=== PATIENT | male | born 1945 | race Caucasian/White ===

== ENCOUNTER → 2018-02-24 06:14 | Outpatient (CLI) | payer OTHER, SELFPAY ==
--- NOTE | 2018-02-24 09:08 | STRESSREP ---
Stress Test Report Exercise myocardial perfusion stress test. 72-year-old man with a history of chest pain. Stress protocol: Resting EKG demonstrates sinus bradycardia cardia with a rate of 58 bpm resting blood pressure 734/80 mmHg no acute changes noted. Occasional premature ventricular complexes are present. The patient exercised according to the regular Dinesh protocol for a total duration of 3 minutes and 10 seconds the maximum heart rate attained was 141 bpm which was 96% of maximum predicted heart rate the maximum workload was 4.8 metabolic equivalents. Patient maintained sinus rhythm throughout the recording there was one episode of ventricular triplet noted. The resting blood pressure was 134/80 final blood pressure was 136/78 mmHg. There were no ST or T-wave changes noted suggest ischemia. Myocardial perfusion protocol. 11.3 mCi of technetium 99m sestamibi was injected at rest. The patient exercised according to regular Dinesh protocol for 3 minutes and 10 seconds attaining 4.8 metabolic equivalents at peak exercise 33.1 mCi of technetium 99m sestamibi was injected stress images were obtained stress and rest images were reconstructed and compared in the short axis vertical long and horizontal long axis. Perfusion SPECT analysis: Review of the stress images demonstrate an small cardiac silhouette size. There appears to be normal perfusion in all areas of the myocardium with mildly reduced perfusion noted only in the inferior wall. This is likely secondary to GI or diaphragmatic attenuation. This is present on the stress and rest images to a similar extent and is not suggestive of ischemia. Gated SPECT analysis: The gated ejection fraction is estimated at 43% with global hypokinesis. Conclusion: Exercise stress test with no obvious ischemia noted at a low workload. Low metabolic workload may affect the sensitivity for detection of ischemia. Mild cardiomyopathy present.
== END ==
PROVIDERS: Family Provider Family Medicine; PCP Family Medicine; Visit Provider Family Medicine
DX: R07.9 Chest pain, unspecified (principal)
CPT/HCPCS: 78452; 93017; A9500; A4216

== ENCOUNTER 2020-03-04 20:00 | Emergency (ER) | payer OTHER, SELFPAY ==
[2020-02-28 09:38] VITALS: BMI 26.7
[2020-03-04 20:02] VITALS: BP 145/111; PULSE 46; RESP 16; TEMP 36.6; O2SAT 97; BMI 26.7
[2020-03-04] MEDS: Diphth,Pertuss(Acell),Tet Vac 0.5 ML Vial IM (21:06)
[2020-03-04] MEDS: BACITRACIN 15 GM Tube 1 APPLIC TOPICAL (21:06)
--- NOTE | 2020-03-04 21:47 | ED.VISSUMM ---
- ER Visit Summary Date of Service: 03/04/20 Chief Complaint: Fall History of Present Illness: The patient is a 74 M who presents after a fall that occurred today. Patient states he slipped on a railroad tie that rolled out from underneath him. Patient fell forward and hit his head. Patient denies any loss of consciousness. Patient is unsure of his last tetanus. Patient denies any paresthesias or weakness. Patient denies any visual changes. Patient does admit to some mild aching on the left side of his head. Patient also admits to some mild pain over his upper thoracic paraspinal area. Patient denies any nausea or vomiting. Patient denies any chest pain or shortness of breath. Physical Examination: Vital signs are stable. Patient is afebrile. Patient is in no acute distress. Skin is warm and dry. There is a 3 cm V-shaped laceration over the left periorbital area. There is moderate gapping of the wound margins. There is no active bleeding noted. There is no bony crepitance or step-off. There are no foreign bodies noted. Pupils are equal, round, and reactive to light bilaterally. Extraocular muscles are intact. Cranial nerves II through XII are intact. There are no focal motor or sensory deficits noted. Musculoskeletal exam reveals tenderness over the upper thoracic paraspinal muscles. There is no bony crepitance or step-off. There is no edema or ecchymosis. Heart was regular rate and rhythm. Lungs are clear and equal bilaterally. Abdomen is soft and nontender. Emergency Department Course and Treatment: The wound was cleaned and irrigated with copious amounts of normal saline. The wound was anesthetized with 1% lidocaine with epinephrine locally. The wound was closed with 5 simple interrupted #5-0 nylon sutures under sterile technique. Patient tolerated the procedure well. Bacitracin dressing was applied. Patient was instructed to keep the wound clean and dry. Patient was instructed to follow-up with his primary care physician in 5 to 7 days. Patient understood and was agreeable with the plan. All questions were answered. Disposition: Discharge home Impression: Facial laceration This note was generated with [employer] dictation software. It may contain incorrect words, spelling, and punctuation that were not noted in review of the chart prior to signing ED Disposition - Plan for ED Patient: Disposition: Home or Assisted Living Diagnosis: Facial laceration Instructions: ED Laceration Facial Sutr Tape Referrals: Beni Joseph III, MD [Primary Care Provider] - 5 Days for suture removal
[2020-03-04 22:47] VITALS: BP 147/87; PULSE 76; RESP 16; O2SAT 99
== END 2020-03-04 22:49 | disposition home or self-care (01) ==
PROVIDERS: Emergency Provider Emergency Medicine; PCP Family Medicine
DX: S01.81XA Laceration without foreign body of other part of head, initial encounter (principal); W01.0XXA Fall on same level from slipping, tripping and stumbling without subsequent striking against object, initial encounter; Y93.9 Activity, unspecified; Y92.9 Unspecified place or not applicable; I10 Essential (primary) hypertension; Z79.899 Other long term (current) drug therapy
CPT/HCPCS: 12013; 90715; 99283

== ENCOUNTER → 2020-03-12 14:56 | Outpatient (CLI) | payer OTHER, SELFPAY ==
--- NOTE | 2020-03-12 | LES_PTH ---
PATIENT: BJORN ARTEAGA LOC: [facility] U#:[id number] AGE/SX: 79/M ROOM: RE03/12/[address]: Dr. Facundo Joseph MD : 1945 BED: DIS: SPEC #: [id number] RECD: 03/12/20 14:52 STATUS: TARUN JENA #: [id number] MOLLY: 03/12/20 00:[address]: Facundo Joseph DEPT: SURGICAL PATHOLOGY RECD BY: Errol Groves ENTERED: 03/13/20 10:32 SP TYPE: Lesion OTHR DR: Dr. Beni Joseph III, MD Tissues: Skin of scalp, NOS Procedures: Surgery Specimen Level IV HEADER OPERATION: Punch biopsy right parietal scalp PRE-OP DIAGNOSIS: Neoplasm scalp TISSUE SUBMITTED: Right parietal scalp tissue MICROSCOPIC DIAGNOSIS Right parietal scalp lesion, punch biopsy: Consistent with seborrheic keratosis. Negative for malignancy. See comment. SJ:maykel 03/14/20 COMMENT Clinical correlation and appropriate follow up are necessary. MICROSCOPIC DESCRIPTION Slides are reviewed. GROSS DESCRIPTION Received in fixative is one container labeled with the patient's name and designated right parietal tissue. The specimen consists of a punch biopsy of dubose-white skin measuring 0.5 cm in length and 0.2 cm in diameter. The specimen is submitted in its entirety in one cassette. / AM:maykel 03/13/20 TC:1 CPT: 81082
[2020-03-12 13:00] VITALS: BMI 26.7
== END ==
PROVIDERS: PCP Family Medicine; Referring Provider Surgery; Visit Provider Surgery
DX: D48.5 Neoplasm of uncertain behavior of skin (principal)
CPT/HCPCS: 88305

== ENCOUNTER → 2022-01-05 | Outpatient (CLI) | payer OTHER, SELFPAY ==
[2022-01-05 11:53] LABS: Absolute Lymphocyte Count 1.16 X10^3/uL (0.83-4.51); Absolute Neutrophil Count 6.4 X10^3/uL (2.0-7.7); Basophil# 0.03 X10^3/uL; Basophil% 0.3 % (0-1); Eosinophil# 0.23 X10^3/uL; Eosinophils% 2.6 % (0-5); Hematocrit 40.8 % (40-54); Hemoglobin 13.2 g/dL (13.0-16.5); Lymphocyte # 1.16 X10^3/ul (0.83-4.51); Lymphocyte % 13.2 % (19-41); Mean Corp Hgb Conc 32.4 g/dL (32-36); Mean Corpuscular Hgb 30.8 pg (27.0-32.0); Mean Corpuscular Volume 95.1 fL (80-94); Mean Platelet Vol. 10.8 fl (6.2-12.0); Monocyte% 10.2 % (0-10); NRBC Flagged by Analyzer 0 % (0-5); Neutrophil # 6.43 X10^3/uL (2.7-7.7); Neutrophil % 73.1 % (47-70); Platelet Count 150 K/mm3 (150-450); RBC Distribution Width CV 12.5 % (11.6-14.6); RBC Distribution Width SD 43.5 fl (35.1-43.9); Red Blood Count 4.29 M/mm3 (4.6-6.2); White Blood Count 8.8 K/mm3 (4.4-11.0)
[2022-01-05 11:54] LABS: Erythrocyte Sedimentation Rate 14 mm/hr (0-20)
== END | disposition home or self-care (01) ==
LOC: LAB 11:00
PROVIDERS: Referring Provider Orthopaedic Surgery; Visit Provider Orthopaedic Surgery
DX: M16.12 Unilateral primary osteoarthritis, left hip (principal)
CPT/HCPCS: 36415; 85025; 85652; 86140

== ENCOUNTER 2023-02-15 08:18 | Observation (INO) | payer OTHER, MEDICARE, SELFPAY ==
[2023-02-15 08:19] VITALS: BP 164/84; PULSE 59; RESP 18; TEMP 36.3; O2SAT 100; BMI 34.7
--- NOTE | 2023-02-15 08:41 | CT_ITS ---
INDICATION: head injury EXAMINATION: CT BRAIN - CT Head or Brain W/O Contrast Injection TECHNIQUE: Multiple axial images were obtained of the head without intravenous contrast. A radiation dose optimization technique was used for this scan. IV Contrast dosage and agent: None. RADIATION DOSAGE (If Supplied By Facility): CTDIvol = ( 44.99 ) mGy, DLP = ( 812.98 ) mGycm COMPARISON: FINDINGS: BRAIN PARENCHYMA: No intra- or extra-axial hemorrhage. There are a few subtle foci of low attenuation within the white matter of the cerebral hemispheres, a nonspecific finding most commonly reflecting small vessel ischemia. No evidence of acute infarct. No intracranial mass or mass effect. There is preservation of the jacobson/white matter interface. Posterior fossa structures are unremarkable. CSF SPACES: Appropriate for age. No hydrocephalus. Basal cisterns are patent. CALVARIUM, SKULL BASE, PARANASAL SINUSES AND MASTOID AIR CELLS: There is a round opacity within the right frontal sinus consistent with a mucous retention cyst or polyp. There is minimal opacification of the right maxillary sinus consistent with a mucous retention cyst or polyp. There is mild soft tissue swelling overlying the right frontal calvarium consistent with recent trauma. There is a separate dedicated CT report of the cervical spine. ORBITS: Both globes, extraocular muscles, optic nerves and retrobulbar fat appear unremarkable. ASPECTS Score for Acute Strokes: 10 CT/Brain/Head without Contrast IMPRESSION: No acute intracranial process. Electronically Signed: Romelia Lemons MD at 9:41 EDT ,
--- NOTE | 2023-02-15 08:41 | CT_ITS ---
INDICATION: polytrauma EXAMINATION: CT CERVICAL SPINE - CT Spine Cervical W/O Contrast Injection TECHNIQUE: Helically acquired images were obtained of the cervical spine. 2D reformatted images were reviewed. A radiation dose optimization technique was used for this scan. IV Contrast dosage and agent: None. RADIATION DOSAGE (If Supplied By Facility): CTDIvol = ( 25.43 ) mGy, DLP = ( 561.20 ) mGycm COMPARISON: FINDINGS: VERTEBRAE: No fracture or traumatic subluxation. There is a defect within the posterior arch of C1 that may be congenital or secondary to an old injury. There is multilevel facet hypertrophy. No discrete lytic or blastic abnormality. There is loss of the normal cervical lordosis. Normal craniocervical junction and cervicothoracic junction. DISCS and SPINAL CANAL: There is multilevel degenerative disc disease. No critical stenosis. NECK SOFT TISSUES: There are vascular calcifications. There is no cervical adenopathy. LUNG APICES: Clear. CT/Spine Cervical without Contras IMPRESSION: Multilevel degenerative disc disease. Electronically Signed: Romelia Lemons MD at 9:51 EDT ,
--- NOTE | 2023-02-15 08:42 | EKG12_ITS ---
Test Reason : FALL Blood Pressure : / mmHG Vent. Rate : 055 BPM Atrial Rate : 055 BPM P-R Int : 148 ms QRS Dur : 102 ms QT Int : 444 ms P-R-T Axes : 025 -30 014 degrees QTc Int : 424 ms Sinus bradycardia Left axis deviation Cannot rule out Inferior infarct , age undetermined Abnormal ECG Confirmed by OPHELIA HOWARD, DAMION ([id number]), fan mail editor LYNNETTE LUX ([id number]) on 02/16/2023 9:59:43 AM Referred By: Confirmed By:DAMION JACINTO MD
--- NOTE | 2023-02-15 08:42 | EDS_ITS ---
HPI HPI - Fall History of Present Illness Chief Complaint: Fall Informant: patient and spouse/S.O. Narrative Narrative: Brought in by EMS from home unwitnessed fall. Spouse present states she heard a thump she came downstairs patient laying on the ground not initially responding. She called EMS, patient EMS arrived patient got himself up. Does not take any blood thinners. Injury to head left elbow. No anticoagulants. Tetanus unkn own. Patient blood pressure medicines lisinopril takes propanolol for tremors. No diagnosed parkinsonian syndrome. Followed by PCP. Denies nausea or vomiting. Patient denies any symptoms at this time. Tetanus Immunization: Unknown [facility] Medical History (Updated 02/15/23 @ 15:[address] Addy Boston MD) Arthritis BCC (basal cell carcinoma of skin) Change in mole Hypertension Skin lesion Home Medications lisinopril 20 mg tablet 1 tab PO DAILY BLOOD PRESSURE 02/28/20 [History Last Taken Unknown] B6 0.85 mg-folic 200 [id number]-[id number] oral chewable tablet (Neuriva Plus) 1 tab PO DAILY SUPPLEMENT 02/15/23 [History Last Taken Unknown] multivitamin 1 tab PO DAILY HEALTH MAINTENANCE 02/15/23 [History Last Taken Unknown] propranolol 60 mg capsule,24 hr,extended release 60 mg PO DINNER TREMORS 02/15/23 [History Last Taken Unknown] Allergy/AdvReac Type Severity Reaction Status Date / Time No Known Allergies Allergy Verified 06/01/22 13:47 Family History Brother Cancer Father Heart disease Surgical History (Updated 02/15/23 @ 11:04 by Lisa Alegria RN) Status post hip replacement Social History Smoking Status: Never smoker ROS ROS ED Constitutional Constitutional ED: Denies chills, fever(s) or sweats Eyes Eyes: Denies change in vision ENT ENT ED: Denies dysphagia or sore throat Cardiovascular Cardiovascular: Denies chest pain, leg edema, palpitations or racing heartbeat Respiratory/Chest Respiratory/Chest: Denies cough, dyspnea or dyspnea on exertion Gastrointestinal Gastrointestinal: Denies abdominal pain, diarrhea, nausea or vomiting Genitourinary Genitourinary ED: Denies dysuria, hematuria or urinary frequency Musculoskeletal Musculoskeletal: Denies back pain, extremity pain or neck pain Integumentary Reports Abrasions and wounds; Denies rash Neurologic Neurologic: Denies headache(s), paresthesias or weakness EXAM Physical Exam Const Vital Signs: 02/15/23 08:19 02/15/23 08:23 02/15/23 08:27 Temperature 97.4 F L Temperature Source Temporal Pulse Rate 59 L Respiratory Rate 18 Respiratory Effort Normal Respiratory Pattern Normal Blood Pressure 164/84 H Blood Pressure Mean 110 Pulse Ox 100 Oxygen Delivery Method Room Air Room Air Positive well nourished and well developed Constitutional Narrative: GCS 14 with slight confusion. General Appearance ED: well developed and NAD HEENT Reports moist mucous membranes HEENT Narrative: 1 cm right frontal scalp laceration superficial dried blood bleeding after cleanse. Controlled with pressure. No hemotympanums. normocephalic Eyes PERRL, EOMs intact bilaterally and conjunctivae normal General Eye ED: Yes normal appearance of both eyes Neck full ROM, no lymphadenopathy and supple General: Negative for tenderness Chest Wall inspection of chest normal and palpation of chest normal Chest: Negative for tenderness Resp normal respiratory effort and normal air movement Effort and Inspection: symmetric chest movement; Negative for respiratory distress Cardio regular rate, regular rhythm and no murmurs Peripheral Pulses: pulses 2+ throughout GI normal to inspection, nondistended, normoactive bowel sounds and non-tender Palpation: Negative for guarding or rebound tenderness present Back/Spine no CVA tenderness and no thoracic nor lumbar tenderness Extremity Extremity Narrative: Negative logroll lower extremities. No tenderness or deformities. Left upper extremity. Full range of motion, there was abrasion left lateral elbow with no active bleeding. Full range of motion without tenderness. Distal pulses intact. Right upper extremity: Full range of motion without tenderness. No deformities. Pulse intact distally. General Extremety ED: Negative for edema or tenderness General Extremity: Negative for edema Neuro CN's II-XII intact bilaterally, moves all extremities and no sensory deficits noted Neuro Narrative: To person and place reported year was 1962. Sensorium / Orientation: awake and alert Skin no rashes or lesions noted and no wounds MDM MDM MDM Narrative Medical decision making narrative: Interventions / MDM: Differential diagnosis: Head injury, intracranial hemorrhage, scalp laceration, elbow abrasion, syncope, cardiac dysrhythmia Diagnosis considered but do not suspect: Elbow fracture however full range of motion without pain. My EKG interpretation: Sinus rate of 55, no ST changes. Isolated T wave version lead III nonspecific. Imaging independently reviewed and interpreted by myself: CT brain/cervical spine: No intracranial hemorrhage, degenerative change cervical spine also read by radiology. External documents reviewed: N/A Test considered but not ordered:N/A ED course: Patient EKG sinus bradycardia is on propanolol. Trauma scans head and neck negative. Basic labs obtained normal. Procedure note: Verbal consent from spouse. Scalp laceration. Superficial laceration minimal bleeding after cleaning. Cleanse with a moist cough. 3 layers of Dermabond in place right frontal scalp with good approximation, hemostasis achieved. Patient tolerated procedure well. Re-evaluation: 1000: Patient now alert orient x3, he still does not recall the event. Concussion with amnestic event likely loss of consciousness. However unclear on how he fell. Cardiac dysrhythmia still in the differential. Discussed with spouse, she would like him monitored due to the event. I agree with this. Will discuss with hospitalist service. Disposition discussed with patient/family/significant other: Patient and significant other Case discussed with consulting clinician: Hospitalist This note was generated with [employer] dictation software. It may contain incorrect words, spelling, and punctuation that were not noted in checking the note before signing. Lab Data Attestation: I reviewed the patient's lab results. Labs: Laboratory Results - last 24 hr 02/15/23 02/15/23 02/15/23 08:25 08:25 08:25 WBC 6.7 RBC 4.05 L Hgb 12.8 L Hct 38.8 L MCV 95.8 H MCH 31.6 MCHC 33.0 RDW Std Deviation 44.7 H RDW Coeff of [place] 12.7 Plt Count 130 L MPV 11.0 Immature Gran % (Auto) 0.300 Neut % (Auto) 60.9 Lymph % (Auto) 24.5 [place] % (Auto) 8.1 Eos % (Auto) 5.8 H Baso % (Auto) 0.4 Absolute Neuts (auto) 4.1 Absolute Lymphs (auto) 1.64 Nucleated RBC % 0 PT 13.9 INR 1.1 APTT 30.4 Sodium 144 Potassium 4.4 Chloride 113 H Carbon Dioxide 30.0 Anion Gap 1 L BUN 27 H Creatinine 1.04 Estim Creat Clear Calc 57.59 Est GFR (MDRD) Af Amer 89 Est GFR (MDRD) Non-Af 73 BUN/Creatinine Ratio 26.0 H Glucose 100 Calcium 8.8 Urine Color Urine Clarity Urine pH Ur Specific [place] Urine Protein Urine Glucose (UA) Urine Ketones Urine Occult Blood Urine Nitrite Urine Bilirubin Urine Urobilinogen Ur Leukocyte Esterase Urine RBC Urine WBC Ur Squamous Epith Cells Urine Bacteria Urine Mucus 02/15/23 09:55 WBC RBC Hgb Hct MCV MCH MCHC RDW Std Deviation RDW Coeff of [place] Plt Count MPV Immature Gran % (Auto) Neut % (Auto) Lymph % (Auto) [place] % (Auto) Eos % (Auto) Baso % (Auto) Absolute Neuts (auto) Absolute Lymphs (auto) Nucleated RBC % PT INR APTT Sodium Potassium Chloride Carbon Dioxide Anion Gap BUN Creatinine Estim Creat Clear Calc Est GFR (MDRD) Af Amer Est GFR (MDRD) Non-Af BUN/Creatinine Ratio Glucose Calcium Urine Color Yellow Urine Clarity Clear Urine pH 7.0 Ur Specific [place] 1.010 Urine Protein 15 H Urine Glucose (UA) Normal Urine Ketones Negative Urine Occult Blood Negative Urine Nitrite Negative Urine Bilirubin Negative Urine Urobilinogen Normal Ur Leukocyte Esterase 25 H Urine RBC 0 SEEN Urine WBC 0 SEEN Ur Squamous Epith Cells 0 SEEN Urine Bacteria 0 SEEN Urine Mucus 0 SEEN Radiography Diagnostic Testing: Clinical Impression(s) from Imaging Studies Brain CT 02/15/23 08:41 IMPRESSION: No acute intracranial process. Electronically Signed: Romelia Lemons MD at 9:41 EDT Reading Location ID and State: [facility] / [place] Tel , Service support , Cervical Spine CT 02/15/23 08:41 IMPRESSION: Multilevel degenerative disc disease. Electronically Signed: Romelia Lemons MD at 9:51 EDT , Discharge Plan Disposition Disposition: Acute Care Hospital [facility] Discharge Date/Time: 02/15/23 10:35
[2023-02-15 09:09] LABS: Absolute Lymphocyte Count 1.64 X10^3/uL (0.83-4.51); Absolute Neutrophil Count 4.1 X10^3/uL (2.0-7.7); Basophil# 0.03 X10^3/uL; Basophil% 0.4 % (0-1); Eosinophil# 0.39 X10^3/uL; Eosinophils% 5.8 % (0-5); Hematocrit 38.8 % (40-54); Hemoglobin 12.8 g/dL (13.0-16.5); Lymphocyte # 1.64 X10^3/ul (0.83-4.51); Lymphocyte % 24.5 % (19-41); Mean Corpuscular Hgb 31.6 pg (27.0-32.0); Mean Corpuscular Volume 95.8 fL (80-94); Monocyte# 0.54 X10^3/uL; Monocyte% 8.1 % (0-10); NRBC Flagged by Analyzer 0 % (0-5); Neutrophil # 4.07 X10^3/uL (2.7-7.7); Neutrophil % 60.9 % (47-70); Platelet Count 130 K/mm3 (150-450); RBC Distribution Width CV 12.7 % (11.6-14.6); RBC Distribution Width SD 44.7 fl (35.1-43.9); Red Blood Count 4.05 M/mm3 (4.6-6.2); White Blood Count 6.7 K/mm3 (4.4-11.0)
[2023-02-15 09:15] LABS: International Normalized Ratio 1.1; Prothrombin Time (Protime)PT. 13.9 SECONDS (11.7-14.9)
[2023-02-15 09:16] LABS: Partial Thromboplast Time 30.4 Seconds (24.1-36.2)
[2023-02-15 09:19] LABS: Anion Gap 1 (5-15); BUN 27 mg/dL (7-18); Calcium,Total 8.8 mg/dL (8.5-10.1); Chloride 113 mmol/L (98-107); Creatinine, Serum 1.04 mg/dL (0.70-1.30); EST Glomerular Filtration Rate 73 mL/min (>60); Est Glom Filt Rate - Afr Amer 89 mL/min (>60); Estimated Creatinine Clearance 57.59 ml/min; Glucose 100 mg/dL (74-106); Potassium 4.4 mmol/L (3.5-5.1); Sodium Level 144 mmol/L (136-145)
[2023-02-15 10:00] LABS: Bacteria 0 SEEN /hpf (None Seen); Mucous, Urine 0 SEEN /hpf (<or=2+); Red Blood Cells-Urine 0 SEEN /hpf (0-5); Squamous Epithelial Cells - UA 0 SEEN /hpf (0-5); White Blood Cells 0 SEEN /hpf (0-5)
[2023-02-15 10:07] LABS: Color, Urine Yellow (Yellow); Glucose, Dipstick Normal (Normal); Ketone-Dipstick Negative (Negative); Leukocyte Esterase-Dipstick 25 /ul (Negative); Nitrite-Dipstick Negative (Negative); Occult Blood-Urine Negative /ul (Negative); Protein-Dipstick 15 mg/dl (Negative); Urine Bilirubin Dipstick Negative (Negative); Urine Clarity Clear (Clear); Urine Urobilinogen Normal (Normal)
--- NOTE | 2023-02-15 10:08 | NURSING ---
DR KARI ARMAS
[2023-02-15] MEDS: Diphth,Pertuss(Acell),Tet Vac 0.5 ML Vial IM (10:09)
[2023-02-15 10:10] VITALS: BP 141/76; PULSE 57; RESP 18; O2SAT 97
--- NOTE | 2023-02-15 10:12 | NURSING ---
PCU OBS [facility] CONCUSSION LOC, [facility]
[2023-02-15 10:16] VITALS: BP 142/71; PULSE 56; RESP 18; TEMP 36.3; O2SAT 100
[2023-02-15 10:45] VITALS: BMI 25.0
[2023-02-15 10:49] VITALS: BP 142/85; PULSE 59; RESP 18; TEMP 36.6; O2SAT 100
--- NOTE | 2023-02-15 15:42 | HP.PCM.HOS_ITS ---
HPI - General General Date of Admission: 02/15/23 HPI Narrative BJORN ARTEAGA, is a 77 M who presents to the hospital after a fall. This was unwitnessed and he does remember much of the event. His was upstairs and heard a thud and called out his name and when he did not answer she went to investigate and found him in the living room getting up and he appeared to be dazed. He had hit his shoulder and also his head. When he was not responding very well to her she called 911 was brought to the hospital. On arrival and he returned to baseline with knowing where he was and what was going on. He still does not remember the fall denies any chest pain or lightheadedness. He denies having any type of palpitations prior to the fall. He did not lose control of his bowel or bladder functions and has no history of seizures. He did have a stress test in 2018 with reduced EF but he denies any shortness of breath or lower extremity edema. [facility] Medical History (Updated 02/15/23 @ 15:[address] Addy Boston MD) Arthritis BCC (basal cell carcinoma of skin) Change in mole Hypertension Skin lesion Home Medications lisinopril 20 mg tablet 1 tab PO DAILY BLOOD PRESSURE 02/28/20 [History Last Taken Unknown] B6 0.85 mg-folic 200 [id number] oral chewable tablet (Neuriva Plus) 1 tab PO DAILY SUPPLEMENT 02/15/23 [History Last Taken Unknown] multivitamin 1 tab PO DAILY HEALTH MAINTENANCE 02/15/23 [History Last Taken Unknown] propranolol 60 mg capsule,24 hr,extended release 60 mg PO DINNER TREMORS 02/15/23 [History Last Taken Unknown] Allergy/AdvReac Type Severity Reaction Status Date / Time No Known Allergies Allergy Verified 06/01/22 13:47 Family History Brother Cancer Father Heart disease Surgical History (Updated 02/15/23 @ 11:04 by Lisa Alegria RN) Status post hip replacement Social History Smoking Status: Never smoker ROS Constitutional Constitutional: Denies chills, fatigue, fever(s) or malaise Eyes Eyes: Denies blurry vision ENT HEENT: Denies headache(s) or nasal discharge Cardiovascular Cardiovascular: Denies chest pain, dyspnea on exertion or syncope Respiratory/Chest Respiratory/Chest: Denies cough, shortness of breath at rest or shortness of breath with exertion Gastrointestinal Gastrointestinal: Denies constipation, diarrhea, nausea or vomiting Genitourinary Genitourinary: Denies dysuria Integumentary Integumentary: Reports new lesions Neurologic Neurologic: Denies focal weakness, numbness or tremor(s) Psychiatric Psychiatric: Denies anxiety or depression Vital Signs Vital Signs Vital Signs: 02/15/23 08:19 02/15/23 08:23 02/15/23 08:27 Temperature 97.4 F L Temperature Source Temporal Pulse Rate 59 L Respiratory Rate 18 Respiratory Effort Normal Respiratory Depth Respiratory Pattern Normal Blood Pressure 164/84 H Blood Pressure Mean 110 Blood Pressure Source Blood Pressure Position Blood Pressure Location Pulse Ox 100 Oxygen Delivery Method Room Air Room Air 02/15/23 10:10 02/15/23 10:16 02/15/23 10:49 Temperature 97.4 F L 97.8 F Temperature Source Temporal Oral Pulse Rate 57 L 56 L 59 L Respiratory Rate 18 18 18 Respiratory Effort Respiratory Depth Respiratory Pattern Blood Pressure 141/76 H 142/71 H 142/85 H Blood Pressure Mean 97 94 104 Blood Pressure Source Monitor Blood Pressure Position Semi-Fowlers Blood Pressure Location Right Arm Pulse Ox 97 100 100 Oxygen Delivery Method Room Air Room Air Room Air 02/15/23 11:14 Temperature Temperature Source Pulse Rate Respiratory Rate Respiratory Effort Normal Non-Labored Respiratory Depth Normal Respiratory Pattern Normal Blood Pressure Blood Pressure Mean Blood Pressure Source Blood Pressure Position Blood Pressure Location Pulse Ox Oxygen Delivery Method Room Air Weight Weight: 169 lb 5.04 oz Body Mass Index (BMI) 25.0 Physical Exam Narrative General: Alert, Oriented x3, Cooperative, No apparent distress HEENT: Scalp abrasion and laceration, PERRLA, EOMI, Normocephalic Oral: Moist Mucosa Neck: Supple, No JVD Lungs: Clear to auscultation, Normal air movement, No rhonchi, No wheeze, No rales Cardiovascular: Regular rate, Regular Rhythm, Normal S1, Normal S2, No murmurs Abdomen: Soft, Non Tender, Non-Distended, No Hepato-splenomegaly Extremities: No edema, Capillary Refill Less than 3 Seconds Skin: Shoulder ecchymosis on the left Musculoskeletal: No Tenderness to Palpation of Joints or Extremities Neurological: Cranial nerves II-XII grossly intact, Motor Exam 5/5 strength throughout, Sensory exam intact to light touch and pain Psych/Mental Status: Normal Affect, Appropriate Results Lab / Micro Data Result Diagrams: 02/15/23 08:25 02/15/23 08:25 Labs: Laboratory Results - last 24 hr 02/15/23 08:25: WBC 6.7, RBC 4.05 L, Hgb 12.8 L, Hct 38.8 L, MCV 95.8 H, MCH 31.6, MCHC 33.0, RDW Std Deviation 44.7 H, RDW Coeff of [place] 12.7, Plt Count 130 L, MPV 11.0, Immature Gran % (Auto) 0.300, Neut % (Auto) 60.9, Lymph % (Auto) 24.5, [place] % (Auto) 8.1, Eos % (Auto) 5.8 H, Baso % (Auto) 0.4, Absolute Neuts (auto) 4.1, Absolute Lymphs (auto) 1.64, Nucleated RBC % 0 02/15/23 08:25: PT 13.9, INR 1.1, APTT 30.4 02/15/23 08:25: Sodium 144, Potassium 4.4, Chloride 113 H, Carbon Dioxide 30.0, Anion Gap 1 L, BUN 27 H, Creatinine 1.04, Estim Creat Clear Calc 57.59, Est GFR (MDRD) Af Amer 89, Est GFR (MDRD) Non-Af 73, BUN/Creatinine Ratio 26.0 H, Glucose 100, Calcium 8.8 02/15/23 09:55: Urine Color Yellow, Urine Clarity Clear, Urine pH 7.0, Ur Specific [place] 1.010, Urine Protein 15 H, Urine Glucose (UA) Normal, Urine Ketones Negative, Urine Occult Blood Negative, Urine Nitrite Negative, Urine Bilirubin Negative, Urine Urobilinogen Normal, Ur Leukocyte Esterase 25 H, Urine RBC 0 SEEN, Urine WBC 0 SEEN, Ur Squamous Epith Cells 0 SEEN, Urine Bacteria 0 SEEN, Urine Mucus 0 SEEN Radiology Impression Brain CT 02/15/23 08:41 IMPRESSION: No acute intracranial process. Electronically Signed: Romelia Lemons MD at 9:41 EDT , Cervical Spine CT 02/15/23 08:41 IMPRESSION: Multilevel degenerative disc disease. Electronically Signed: Romelia Lemons MD at 9:51 EDT , Assessment & Plan Assessment/Plan (1) Near syncope: PLAN: Plan 1. Syncope versus near syncope/HTN ? Unlikely to be seizures ? We will keep on telemetry to monitor for any arrhythmias ? Given his EF was 43% on the stress test back in 2018 we will repeat an echo here ? Can resume his home blood pressure occasions 2. Essential tremor ? She is on propranolol which we will continue 75 minutes was spent on direct patient care as well as chart review and collaboration with colleagues Charges/Coding Visit Charges Inpatient E&M: 61145 Init Hosp L3
--- NOTE | 2023-02-15 15:48 | ECHOCS_ITS ---
Reason For Study: SYNCOPE Procedure This was a 2D Doppler, Color Flow transthoracic echocardiogram. The study was technically difficult. Contrast injection was performed. Exam performed portable in patient room. Left Ventricle Normal LV size. Left ventricular systolic function is normal. The estimated ejection fraction is 60 %. No regional wall motion abnormalities noted. Right Ventricle Normal RV size. Normal systolic function. Atria Normal left atrium. The right atrium is moderately enlarged. Mitral Valve Bileaflet diffuse mitral valve thickening. Mild (1+) mitral valve insufficiency. Tricuspid Valve Normal tricuspid valve. Mild (1+) tricuspid valve insufficiency. Pulmonary artery systolic pressure is 32 mmHg. Aortic Valve Trisinus/trileaflet aortic valve. Pulmonic Valve The pulmonic valve is not well visualized. Great Vessels Normal aortic root. The pulmonary artery is normal size. Normal inferior vena cava. Pericardium/Pleural No pericardial effusion. Medication Diluted definity 2ml given slow IV push to enhance endocardial definition. MMode/2D Measurements & Calculations LVIDd: 4.9 cm IVSd: 1.0 cm Ao root diam: 3.2 cm LVIDs: 3.8 cm LVPWd: 1.1 cm RVDd: 3.4 cm FS: 23.4 % EDV(MOD-sp4): 91.5 ml SV(MOD-sp4): 39.3 ml LA dimension(2D): 2.8 cm ESV(MOD-sp4): 52.2 ml EF(MOD-sp4): 43.0 % RA A4 area: 37.1 cm2 Time Measurements MV dec time: 0.17 sec Doppler Measurements & Calculations MV E max doug: 91.2 cm/sec Lat Peak E' Doug: 10.6 cm/sec Med Peak E' Doug: 10.4 cm/sec MV A max doug: 80.9 cm/sec E/E' lat: 8.6 E/E' med: 8.8 MV E/A: 1.1 MV V2 max: 87.0 cm/sec MV dec slope: 535.0 cm/sec2 Ao V2 max: 99.4 cm/sec MV max P.0 mmHg Ao max P.0 mmHg MV V2 mean: 48.4 cm/sec Ao V2 mean: 67.5 cm/sec MV mean P.2 mmHg Ao mean P.1 mmHg MV V2 VTI: 35.7 cm Ao V2 VTI: 22.7 cm AV (velocity ratio): 0.93 LV V1 max: 98.0 cm/sec MR max doug: 557.1 cm/sec TR max doug: 264.1 cm/sec LV V1 max P.8 mmHg MR max P.1 mmHg TR max P.9 mmHg LV V1 mean P.0 mmHg LV V1 mean: 64.7 cm/sec LV V1 VTI: 21.1 cm ECHO/Echo Complete W/ Contrast Interpretation Summary Normal LV size. Left ventricular systolic function is normal. The estimated ejection fraction is 60 %. The right atrium is moderately enlarged. Mild (1+) tricuspid valve insufficiency. Contrast injection was performed. Ordering Physician: Addy Boston Referring Physician: Penny Dyer M.D. Performed By: Anne Germain RCS
[2023-02-15 16:44] VITALS: BP 121/67; PULSE 62; RESP 16; TEMP 36.7; O2SAT 99
[2023-02-15] MEDS: Propranolol LA 60 MG Capsule PO (17:33)
[2023-02-15 22:30] VITALS: BP 117/57; PULSE 62; RESP 18; TEMP 36.9; O2SAT 97
[2023-02-16 07:11] LABS: Absolute Lymphocyte Count 1.85 X10^3/uL (0.83-4.51); Absolute Neutrophil Count 4.7 X10^3/uL (2.0-7.7); Basophil# 0.03 X10^3/uL; Basophil% 0.4 % (0-1); Eosinophil# 0.27 X10^3/uL; Eosinophils% 3.6 % (0-5); Hematocrit 35.8 % (40-54); Hemoglobin 11.4 g/dL (13.0-16.5); Lymphocyte # 1.85 X10^3/ul (0.83-4.51); Lymphocyte % 24.4 % (19-41); Mean Corp Hgb Conc 31.8 g/dL (32-36); Mean Corpuscular Hgb 30.6 pg (27.0-32.0); Mean Corpuscular Volume 96.2 fL (80-94); Mean Platelet Vol. 11.4 fl (6.2-12.0); Monocyte# 0.73 X10^3/uL; Monocyte% 9.6 % (0-10); NRBC Flagged by Analyzer 0 % (0-5); Neutrophil # 4.68 X10^3/uL (2.7-7.7); Neutrophil % 61.7 % (47-70); Platelet Count 118 K/mm3 (150-450); RBC Distribution Width CV 12.5 % (11.6-14.6); RBC Distribution Width SD 43.8 fl (35.1-43.9); Red Blood Count 3.72 M/mm3 (4.6-6.2); White Blood Count 7.6 K/mm3 (4.4-11.0)
[2023-02-16 07:37] LABS: Anion Gap 4 (5-15); BUN 23 mg/dL (7-18); BUN/Creat Ratio 22.3 RATIO (10-20); Calcium,Total 8.4 mg/dL (8.5-10.1); Chloride 112 mmol/L (98-107); Creatinine, Serum 1.03 mg/dL (0.70-1.30); EST Glomerular Filtration Rate 74 mL/min (>60); Est Glom Filt Rate - Afr Amer 90 mL/min (>60); Estimated Creatinine Clearance 58.15 ml/min; Glucose 95 mg/dL (74-106); Sodium Level 142 mmol/L (136-145)
[2023-02-16 09:53] VITALS: BP 127/67; PULSE 60; RESP 16; TEMP 36.6; O2SAT 98
[2023-02-16] MEDS: Lisinopril 20 MG Tablet PO (09:55)
--- NOTE | 2023-02-16 10:04 | DCINST_ITS ---
Discharge Instructions Diet Discharge Diet: Low fat / Low cholesterol Activity Discharge Activity: Return to Normal Activity Dressing / Incision Call your doctor if you observe: Fever of 101 or Higher, Shortness of breath, Dizziness, Fainting spells, Swelling in the ankles, Chest pain and Increased palpitations (irregular heartbeat) Follow Up Care Test Results: Test results from this visit will be discussed in further detail at your follow- up appointment, if applicable. Discharge Plan Admission Admit Date/Time: 02/15/23 10:10 Attending Provider: Addy Boston Primary Care Provider: Penny Dyer Discharge Orders/Prescriptions Prescriptions: Continued lisinopril 20 mg tablet 1 tab PO DAILY propranolol 60 mg capsule,extended release 24 hr 60 mg PO DINNER multivitamin Tablet 1 tab PO DAILY Neuriva Plus 0.85 mg-200 mcg-1.2 mcg Tablet,Chewable 1 tab PO DAILY Referrals / Follow Up: Penny Dyer MD [Primary Care Provider] - Within 1 Week Disposition Disposition (needs filled in before D/C Order can be placed): Home, Self Care
--- NOTE | 2023-02-16 10:18 | PHA.DC.MR.R ---
Pharmacy SD Med Reconciliation Pharmacy Service has performed discharge medication reconciliation for this patient. The patient's discharge medication list was reviewed for discrepancies and discrepancies were resolved. Medications at Discharge Home Medications lisinopril 20 mg tablet 1 tab PO DAILY BLOOD PRESSURE 02/28/20 B6 0.85 mg-folic 200 [id number] oral chewable tablet (Neuriva Plus) 1 tab PO DAILY SUPPLEMENT 02/15/23 multivitamin 1 tab PO DAILY HEALTH MAINTENANCE 02/15/23 propranolol 60 mg capsule,24 hr,extended release 60 mg PO DINNER TREMORS 02/15/23
--- NOTE | 2023-02-16 11:40 | DS.PCM_ITS ---
Providers Date of Admission: 02/15/23 Primary Care Physician: Dr. Penny Dyer MD Reason For Visit: NEAR SYNCOPE, FALL Diagnosis Discharge Diagnosis (1) Near syncope: Status: Acute Code(s): R55 - Syncope and collapse Medications at Discharge Home Medications lisinopril 20 mg tablet 1 tab PO DAILY BLOOD PRESSURE 02/28/20 B6 0.85 mg-folic 200 [id number] oral chewable tablet (Neuriva Plus) 1 tab PO DAILY SUPPLEMENT 02/15/23 multivitamin 1 tab PO DAILY HEALTH MAINTENANCE 02/15/23 propranolol 60 mg capsule,24 hr,extended release 60 mg PO DINNER TREMORS 02/15/23 Hospital Course Operations None Procedures 2-D Echocardiogram Summary of Care Provided Minutes Spent on Discharge: 38 Hospital Course: Per HPI:BJORN ARTEAGA, is a 77 M who presents to the hospital after a fall. This was unwitnessed and he does remember much of the event. His was upstairs and heard a thud and called out his name and when he did not answer she went to investigate and found him in the living room getting up and he appeared to be dazed. He had hit his shoulder and also his head. When he was not responding very well to her she called 911 was brought to the hospital. On arrival and he returned to baseline with knowing where he was and what was going on. He still does not remember the fall denies any chest pain or lightheadedness. He denies having any type of palpitations prior to the fall. He did not lose control of his bowel or bladder functions and has no history of seizures. He did have a stress test in 2018 with reduced EF but he denies any shortness of breath or lower extremity edema. Hospital course: 1. Syncope versus near syncope/HTN?77-year-old male presents to the hospital with what appears to be a syncopal or near syncopal episode. No history of seizures. He has been monitored on telemetry for over 24 hours without any abnormalities noted other than a sinus bradycardia which is likely related to his propranolol. He is on propranolol secondary to tremors but they had to switch to taking it at nighttime instead of daytime because it makes him fatig ued. His fall did occur in the morning so it is possible it could be medication related. To this end I discussed with them the need to follow-up with her PCP in 3 to 5 days to potentially receive a lower dose versus a referral to neurology as an outpatient. I did continue the medication at this time because they felt that his tremors are significant enough that it warrants treatment. Echo was unremarkable. I discussed with him the plan for possible discharge today and both he and his expressed understanding of the risk benefits going home and would like to go home today. His has noted that he is back to his baseline today. Physical Exam Narrative General: Alert, Oriented x3, Cooperative, No apparent distress HEENT: Scalp abrasion and laceration, PERRLA, EOMI, Normocephalic Oral: Moist Mucosa Neck: Supple, No JVD Lungs: Clear to auscultation, Normal air movement, No rhonchi, No wheeze, No rales Cardiovascular: Regular rate, Regular Rhythm, Normal S1, Normal S2, No murmurs Abdomen: Soft, Non Tender, Non-Distended, No Hepato-splenomegaly Extremities: No edema, Capillary Refill Less than 3 Seconds Skin: Shoulder ecchymosis on the left Musculoskeletal: No Tenderness to Palpation of Joints or Extremities Neurological: Cranial nerves II-XII grossly intact, Motor Exam 5/5 strength throughout, Sensory exam intact to light touch and pain Psych/Mental Status: Normal Affect, Appropriate Weight / BMI Weight Weight: 169 lb 5.04 oz Body Mass Index (BMI) 25.0 ABG / Lab / Microbiology Data 02/16/23 05:19 02/16/23 05:19 Laboratory: Laboratory Results - last 24 hr 02/16/23 05:19: WBC 7.6, RBC 3.72 L, Hgb 11.4 L, Hct 35.8 L, MCV 96.2 H, MCH 30.6, MCHC 31.8 L, RDW Std Deviation 43.8, RDW Coeff of [place] 12.5, Plt Count 118 L, MPV 11.4, Immature Gran % (Auto) 0.300, Neut % (Auto) 61.7, Lymph % (Auto) 24.4, [place] % (Auto) 9.6, Eos % (Auto) 3.6, Baso % (Auto) 0.4, Absolute Neuts (auto) 4.7, Absolute Lymphs (auto) 1.85, Nucleated RBC % 0, Sodium 142, Potassium 4.0, Chloride 112 H, Carbon Dioxide 26.0, Anion Gap 4 L, BUN 23 H, Creatinine 1.03, Estim Creat Clear Calc 58.15, Est GFR (MDRD) Af Amer 90, Est GFR (MDRD) Non-Af 74, BUN/Creatinine Ratio 22.3 H, Glucose 95, Calcium 8.4 L Radiography Diagnostic Testing: Radiology Impression Echocardiogram 02/15/23 15:48 Interpretation Summary Normal LV size. Left ventricular systolic function is normal. The estimated ejection fraction is 60 %. The right atrium is moderately enlarged. Mild (1+) tricuspid valve insufficiency. Contrast injection was performed. Ordering Physician: Addy Boston Referring Physician: Penny Dyer M.D. Performed By: Anne Germain RCS D/C Instructions Discharge Diet: Low fat / Low cholesterol Call your doctor if you observe: Fever of 101 or Higher, Shortness of breath, Dizziness, Fainting spells, Swelling in the ankles, Chest pain and Increased palpitations (irregular heartbeat) Meaningful Use Info Meaningful Use Diagnoses (Choose all that apply): None applicable Discharge Plan Admission Admit Date/Time: 02/15/23 10:10 Attending Provider: Addy Boston Primary Care Provider: Penny Dyer Discharge Orders/Prescriptions Prescriptions: Continued lisinopril 20 mg tablet 1 tab PO DAILY propranolol 60 mg capsule,extended release 24 hr 60 mg PO DINNER multivitamin Tablet 1 tab PO DAILY Neuriva Plus 0.85 mg-200 mcg-1.2 mcg Tablet,Chewable 1 tab PO DAILY Referrals / Follow Up: Penny Dyer MD [Primary Care Provider] - Within 1 Week Disposition Disposition (needs filled in before D/C Order can be placed): Home, Self Care Charges/Coding Visit Charges Inpatient E&M: 93102 Disch Hosp >30min
--- NOTE | 2023-02-16 13:04 | NURSING ---
Discharge instructions reviewed with patient and spouse. IV removed and classroom monitor removed and returned to nurses station. Neither patient nor spouse have any questions. Pt left via wheelchair.
== END 2023-02-16 13:08 | disposition home or self-care (01) ==
LOC: ED 09:26 → PCU 10:32
PROVIDERS: Admitting Provider Family Medicine; Emergency Provider Emergency Medicine; PCP Internal Medicine; Visit Provider Family Medicine
DX: R55 Syncope and collapse (principal); R00.1 Bradycardia, unspecified; S59.902A Unspecified injury of left elbow, initial encounter; R25.1 Tremor, unspecified; I10 Essential (primary) hypertension; M19.90 Unspecified osteoarthritis, unspecified site; Z79.899 Other long term (current) drug therapy; Y99.9 Unspecified external cause status; Z23 Encounter for immunization
CPT/HCPCS: 36415; 70450; 72125; 80048; 81001; 85025; 85610; 85730; 87086; 90471; 90715; 93005; 93306; 99221; 99285; Q9957; A4216; C8929; G0378

== ENCOUNTER 2023-05-02 17:12 | Emergency (ER) | payer OTHER, SELFPAY ==
[2023-05-02 17:13] VITALS: BP 165/86; PULSE 66; RESP 16; TEMP 36.6; O2SAT 100; BMI 25.4
--- NOTE | 2023-05-02 17:25 | RAD_ITS ---
STUDY: X-RAY - RIGHT SHOULDER REASON FOR EXAM: Male, 77 years old. FALL TECHNIQUE: 4 view(s) of the shoulder. COMPARISON: None. FINDINGS: There is mild degenerative arthrosis of the glenohumeral articulation. There is degenerative arthrosis of the acromioclavicular joint without inferior osseous spur formation. Normal acromion. Normal humeral head and visualized proximal humerus. The soft tissue structures are unremarkable. There is no demonstrated fracture. Calcified granuloma within the right mid upper lung measuring 7 mm. Remainder of the visualized right lung is clear. RAD/Shoulder min 2 Views IMPRESSION: Degenerative disease as described with no acute fracture or subluxation. Electronically Signed: Wendi Fierro MD at 17:36 EDT ,
--- NOTE | 2023-05-02 19:22 | CT_ITS ---
STUDY: CT BRAIN WITHOUT CONTRAST REASON FOR EXAM: Male, 77 years old. injury RADIATION DOSAGE (If Supplied By Facility): CTDIvol = ( 44.99 ) mGy, DLP = ( 779.24 ) mGycm TECHNIQUE: Transaxial CT imaging of the brain was performed without administration of intravenous contrast material. Individualized dose optimization techniques were used for this CT. COMPARISON: 02/15/2023. FINDINGS: Normal soft tissue structures. Normal calvarium. There is mild to moderate cerebral atrophy with widening of the extra-axial spaces and ventricular dilatation. There are areas of decreased attenuation within the white matter tracts of the supratentorial brain, consistent with microvascular disease changes. Normal basal ganglia and thalami. Normal brainstem. Normal cerebellum. There is no intracranial hemorrhage. There are no findings of an acute ischemic infarction. Normal visualized paranasal sinuses. CT/Brain/Head without Contrast IMPRESSION: Chronic changes as described. No acute intracranial hemorrhage or space-occupying lesion, overall stable study in the interval. Electronically Signed: Wendi Fierro MD at 20:12 EDT ,
[2023-05-02] MEDS: Lidocaine 1% (20 ml mdv) 20 ML Vial INFILT (19:52)
--- NOTE | 2023-05-02 19:52 | ED.VIS.FALL ---
HPI HPI - Fall History of Present Illness Chief Complaint: Fall Informant: patient and spouse/S.O. Narrative Narrative: 77-year-old male presenting to the emergency department with a chief complaint of fall. Patient was going up a hill when he slipped and fell. Struck his head on the ground as well as the left shoulder and head. Superficial abrasions to the hands shoulder. He is able to fully range the shoulder. X-rays were obtained through nursing protocol in triage. He has not lost consciousness and his not on any blood thinners. Tetanus is up-to-date. He is not on any blood thinners. Tetanus Immunization: <5 years PFSH PFS Medical History Arthritis BCC (basal cell carcinoma of skin) Change in mole Hypertension Skin lesion Home Medications lisinopril 20 mg tablet 1 tab PO DAILY BLOOD PRESSURE 02/28/20 [History Last Taken Unknown] B6 0.85 mg-folic 200 [id number] oral chewable tablet (Neuriva Plus) 1 tab PO DAILY SUPPLEMENT 02/15/23 [History Last Taken Unknown] multivitamin 1 tab PO DAILY HEALTH MAINTENANCE 02/15/23 [History Last Taken Unknown] propranolol 60 mg capsule,24 hr,extended release 20 mg PO DINNER TREMORS 02/15/23 [History Last Taken Unknown] Allergy/AdvReac Type Severity Reaction Status Date / Time No Known Allergies Allergy Verified 05/02/23 17:13 Family History Brother Cancer Father Heart disease Surgical History Status post hip replacement Social History Smoking Status: Never smoker ROS ROS ED Constitutional Constitutional ED: Denies chills or weight loss Eyes Eyes: Denies change in vision or diplopia ENT ENT ED: Denies ear pain, rhinorrhea or sore throat Cardiovascular Cardiovascular: Denies chest pain, orthopnea, palpitations or racing heartbeat Respiratory/Chest Respiratory/Chest: Denies cough, dyspnea or orthopnea Gastrointestinal Gastrointestinal: Denies abdominal pain, diarrhea, nausea or vomiting Genitourinary Genitourinary ED: Denies dysuria, hematuria or urinary frequency Musculoskeletal Musculoskeletal: Reports other Details: See HPI ; Denies arthralgias, back pain, myalgias or neck pain Integumentary Reports Abrasions; Denies abscess or rash Neurologic Neurologic: Denies headache(s) or weakness Psychiatric Psychiatric: Denies anxiety, depression, suicidal ideation or suicidal thoughts Endocrine Endocrinology: Denies polydipsia, polyphagia or polyuria Allergic/Immunologic Allergic/Immunologic ED: Denies mouth swelling, tongue swelling or urticaria EXAM Physical Exam Const Vital Signs: 05/02/23 17:13 05/02/23 19:39 Temperature 98 F Temperature Source Temporal Pulse Rate 66 Respiratory Rate 16 Respiratory Effort Normal Non-Labored Respiratory Depth Normal Respiratory Pattern Normal Blood Pressure 165/86 H Blood Pressure Mean 112 Pulse Ox 100 Oxygen Delivery Method Room Air Positive well nourished and well developed General Appearance ED: well developed HEENT Reports normocephalic and moist mucous membranes HEENT Narrative: There is a 1.5 cm irregular laceration with associated abrasion to the right forehead. There is no palpable bony depression. He is able to wrinkle his forehead. Eyes PERRL and EOMs intact bilaterally Neck No full ROM, no lymphadenopathy, supple and no JVD Resp normal respiratory effort and clear to auscultation bilaterally Cardio regular rate, regular rhythm and no murmurs GI normal to inspection, nondistended, normoactive bowel sounds and non-tender Palpation: soft Back/Spine no CVA tenderness and normal ROM Extremity Extremity Narrative: Patient notes soreness to the right shoulder but is able to fully range it. There is associated abrasion and contusion. There are abrasions on the hands. General Extremety ED: Negative for edema General Extremity: Negative for edema Neuro oriented x3 and CN's II-XII intact bilaterally Sensorium / Orientation: alert Motor Exam: strength 5/5 throughout Psych mental status grossly normal Mood & Affect: Negative for depressed or tearful Skin no rashes or lesions noted MDM MDM MDM Narrative Medical decision making narrative: My interpretation of the plain films of the right shoulder is no acute fracture. No dislocation. CT of the brain was obtained which is negative for fracture or hemorrhage. The wound was locally anesthetized using 1% lidocaine washed with Shur-Clens and explored. No foreign bodies were noted. It was closed using a total of 3 simple interrupted 5-0 Vicryl stitches. Wound care discussed with patient and . Patient return if worsening or concerns Radiography Diagnostic Testing: Clinical Impression(s) from Imaging Studies Shoulder X-Ray 05/02/23 17:25 IMPRESSION: Degenerative disease as described with no acute fracture or subluxation. Electronically Signed: Wendi Fierro MD at 17:36 EDT Reading Location ID and State: [facility] / [place] , Service support , Discharge Plan Triage Chief Complaint: Fall ED Provider: Juan Hogan Dx/Rx/DC Orders Clinical Impression: Facial laceration, Multiple abrasions, Fall, Contusion of right shoulder Instructions: ED Head Injury (Adult), ED Laceration: All Closures, ED Shoulder Contusion Prescriptions: No Action lisinopril 20 mg tablet 1 tab PO DAILY propranolol 60 mg capsule,extended release 24 hr 20 mg PO DINNER multivitamin Tablet 1 tab PO DAILY Neuriva Plus 0.85 mg-200 mcg-1.2 mcg Tablet,Chewable 1 tab PO DAILY Primary Care Provider: Penny Dyer Referrals: Penny Dyer MD [Primary Care Provider] - As Needed Disposition Disposition: Home, Self Care
[2023-05-02 20:25] VITALS: PULSE 65; RESP 16; O2SAT 98
== END 2023-05-02 20:25 | disposition home or self-care (01) ==
PROVIDERS: Emergency Provider Emergency Medicine; PCP Internal Medicine; Visit Provider Emergency Medicine
DX: S01.81XA Laceration without foreign body of other part of head, initial encounter (principal); S40.011A Contusion of right shoulder, initial encounter; I10 Essential (primary) hypertension; Z85.828 Personal history of other malignant neoplasm of skin; Z79.899 Other long term (current) drug therapy; Z96.649 Presence of unspecified artificial hip joint; S60.511A Abrasion of right hand, initial encounter; S60.512A Abrasion of left hand, initial encounter; W17.81XA Fall down embankment (hill), initial encounter; Y92.828 Other wilderness area as the place of occurrence of the external cause
CPT/HCPCS: 12011; 70450; 73030; 99283

== ENCOUNTER 2023-11-11 16:54 | Emergency (ER) | payer OTHER, SELFPAY ==
[2023-11-11 16:55] VITALS: BP 145/68; PULSE 83; RESP 18; TEMP 36.8; O2SAT 98
--- NOTE | 2023-11-11 19:04 | RAD_ITS ---
INDICATION: injury EXAMINATION/TECHNIQUE: X-RAY - RIGHT XR Shoulder Min 2 Views 2 VIEWS COMPARISON: No relevant prior comparison study available FINDINGS: SOFT TISSUES: Soft tissue swelling of the shoulder. No radiopaque foreign body. BONES/JOINTS: Questionable fracture of the bony labrum.. Normal alignment. Moderate degenerative changes of the glenohumeral and acromial clavicular joint.. No sclerotic or destructive changes observed. RAD/Shoulder min 2 Views IMPRESSION: Questionable fracture of the bony labrum. Recommend CT. Electronically Signed: Simón Rust MD at 20:40 EDT ,
[2023-11-11] MEDS: HYDROcodone Bitartrate/Apap 5/325 Tablet PO (19:12)
--- NOTE | 2023-11-11 19:25 | RAD_ITS ---
INDICATION: injury EXAMINATION/TECHNIQUE: X-RAY - XR Ribs Unilateral W/ PA Chest Min 3 Views COMPARISON: No relevant prior comparison study available FINDINGS: SOFT TISSUES: No soft tissue swelling or gas. BONES: Age-indeterminate fractures of the posterior right fourth, fifth and sixth ribs. No sclerotic or destructive changes observed. VISUALIZED LUNGS: Clear. No pneumothorax. RAD/Ribs Uni Min 3V w/PA Chest IMPRESSION: Age-indeterminate fractures of the posterior right fourth, fifth and sixth ribs. Consider CT. Electronically Signed: Simón Rust MD at 20:41 EDT ,
--- NOTE | 2023-11-11 21:00 | CT_ITS ---
INDICATION: trauma w/ R hemithoracic pain EXAMINATION: CT Chest W/O Contrast Injection TECHNIQUE: Helically acquired images were obtained of the chest without IV contrast. A radiation dose optimization technique was used for this scan. COMPARISON: None. FINDINGS: Lungs: Scattered subsegmental atelectasis. Mediastinum: The heart is mildly enlarged. No mediastinal, hilar or axillary adenopathy. Mild aortic arch and coronary artery calcifications. Pleura: Unremarkable Bones/Soft tissues: Acute comminuted and mildly displaced fracture of the superior aspect of the right scapula extending to the right labrum. Acute mildly displaced fractures of the right posterior lateral fourth and fifth ribs as well as the right anterolateral fifth and sixth ribs. Upper abdomen: No visualized abnormalities in the upper abdomen. CT/Chest without Contrast IMPRESSION: Acute comminuted and mildly displaced fracture of the superior aspect of the right scapula extending to the right labrum. Acute mildly displaced fractures of the right posterior lateral fourth and fifth ribs as well as the right anterolateral fifth and sixth ribs. No pneumothorax. Electronically Signed: Simón Rust MD at 22:10 EDT ,
--- NOTE | 2023-11-11 21:00 | CT_ITS ---
INDICATION: R shoulder injury, abn XR EXAMINATION: CT Upper Extremity W/O Contrast Injection TECHNIQUE: Helically acquired images were obtained of the right shoulder. 2-D reformats were performed by the technologist. A radiation dose optimization technique was used for this scan. IV Contrast dosage and agent: None. COMPARISON: None. FINDINGS: BONES AND ALIGNMENT: Acute comminuted and mildly displaced fracture of the superior aspect of the right scapula extending to the right labrum. Acute mildly displaced fractures of the right posterior lateral fourth and fifth ribs as well as the right anterolateral fifth and sixth ribs. No pneumothorax. JOINTS: Degenerative changes of the glenohumeral and acromioclavicular joints. SOFT TISSUES: Soft tissue swelling of the right shoulder. CT/Extremity Upper without Contra IMPRESSION: Acute comminuted and mildly displaced fracture of the superior aspect of the right scapula extending to the right labrum. Acute mildly displaced fractures of the right posterior lateral fourth and fifth ribs as well as the right anterolateral fifth and sixth ribs. No pneumothorax. Electronically Signed: Simón Rust MD at 22:12 EDT ,
[2023-11-11 21:26] VITALS: BP 143/74; PULSE 79; RESP 18; TEMP 36.8; O2SAT 98
[2023-11-11] MEDS: oxyCODONE 5 MG Tablet PO (23:03)
--- NOTE | 2023-11-11 23:14 | EDS_ITS ---
HPI HPI - Fall History of Present Illness Chief Complaint: Fall Informant: patient and family (son x 2) Occured/Mechanism Occurred: Days (3) Narrative Narrative: 78-year-old male accompanied by his 2 sons here after having had a fall 3 nights ago, where he got up in the middle of the night to use the restroom and stumbled in the dark without any prodromal symptoms, falling to the floor injuring his right rib cage and shoulder which have been hurting ever since. Sons just found out about it so they brought him here because he was in pain. Patient denies any dyspnea or other injuries. Denies any headaches. Lives at home with his significant other who currently is hospitalized here. [facility] Medical History Arthritis BCC (basal cell carcinoma of skin) Change in mole Hypertension Skin lesion Home Medications lisinopril 20 mg tablet 1 tab PO DAILY BLOOD PRESSURE 02/28/20 [History Last Taken Unknown] B6 0.85 mg-folic 200 [id number] oral chewable tablet (Neuriva Plus) 1 tab PO DAILY SUPPLEMENT 02/15/23 [History Last Taken Unknown] multivitamin 1 tab PO DAILY HEALTH MAINTENANCE 02/15/23 [History Last Taken Unknown] propranolol 60 mg capsule,24 hr,extended release 20 mg PO DINNER TREMORS 02/15/23 [History Last Taken Unknown] oxycodone-acetaminophen 5 mg-325 mg tablet 1 tab PO Q6H PRN PRN Pain 5 days #20 TABLETS 11/11/23 [Rx Last Taken Unknown] Allergy/AdvReac Type Severity Reaction Status Date / Time No Known Allergies Allergy Verified 11/11/23 16:55 Family History Brother Cancer Father Heart disease Surgical History Status post hip replacement Social History Smoking Status: Never smoker ROS ROS ED Constitutional Constitutional ED: Denies chills or fever(s) Eyes Eyes: Denies change in vision or diplopia ENT ENT ED: Denies ear pain, epistaxis, facial pain or rhinorrhea Cardiovascular Cardiovascular: Reports other Details: Right chest wall pain ; Denies palpitations Respiratory/Chest Respiratory/Chest: Denies cough or dyspnea Gastrointestinal Gastrointestinal: Denies abdominal pain, diarrhea, melena, nausea or vomiting Genitourinary Genitourinary ED: Denies dysuria or hematuria Musculoskeletal Musculoskeletal: Reports as per HPI, back pain and extremity pain; Denies neck pain Integumentary Denies abscess, Abrasions, laceration or rash Neurologic Neurologic: Denies confusion, headache(s), paresthesias or weakness EXAM Physical Exam Const Vital Signs: 11/11/23 16:55 11/11/23 18:38 11/11/23 21:26 Temperature 98.3 F 98.2 F Temperature Source Temporal Oral Pulse Rate 83 79 Respiratory Rate 18 18 Respiratory Effort Normal Non-Labored Blood Pressure 145/68 H 143/74 H Blood Pressure Mean 93 97 Pulse Ox 98 98 Oxygen Delivery Method Room Air Room Air Room Air Oxygen Flow Rate (L/min) 95 Positive well nourished and well developed General Appearance ED: well developed and NAD HEENT Reports TM's clear and nasal mucous membranes and turbinates normal atraumatic Face and Sinus: Negative for facial tenderness Tympanic Membrane ED: Yes TM's clear Eyes PERRL and EOMs intact bilaterally Visual Acuity: other Other Details: no entrapment or pain with extraocular movements Neck full ROM and supple General: Negative for tenderness Chest Wall inspection of chest normal Chest Narrative: Tender throughout the right chest wall. No flail. Able to inspire without splinting. No tachypnea. Chest: symmetrical chest wall rise and tenderness; Negative for crepitus Resp normal respiratory effort and clear to auscultation bilaterally Resp Narrative: Equal breath sounds bilaterally. Percussion: other equal BS bilat Cardio Rate: regular rate Rhythm: regular rhythm GI normal to inspection, nondistended, normoactive bowel sounds, soft to palpation and non-tender Back/Spine normal ROM Back/Spine Narrative: Tender throughout the right upper half of the hemithorax without crepitance or focal tenderness. No spine tenderness. Normal on inspection. Cervical Spine: Negative for cervical spine tenderness Thoracic Spine / Upper Back: Negative for thoracic spinal tenderness Lumbar Spine / Lower Back: Negative for lumbar spinal tenderness Extremity normal to inspection Extremity Narrative: Able to range his right shoulder but limited due to pain. He is able to abduct to about 45-60 degrees. There is tenderness in the clavicle more so at the right acromioclavicular joint where there is no deformity, and also mildly tender in the right proximal humerus. No deformities. Nontender in the elbow and wrist where he has full range of motion without pain. General Extremety ED: Yes tenderness Neuro oriented x3, CN's II-XII intact bilaterally, moves all extremities, no focal motor deficits and no sensory deficits noted Neuro Narrative: Able to stand and walk without apparent difficulty. [place] Coma Scale: document GCS findings Spontaneous Obeys Commands Oriented 15 Sensorium / Orientation: awake and alert Psych mental status grossly normal and thought process normal Skin no wounds Lesions: no lesions Rashes: no rashes MDM MDM MDM Narrative Medical decision making narrative: Initially obtained three-view x-ray series of the right shoulder, which shows no gross dislocation or proximal humerus fracture, I questioned the possibility of a type II acromioclavicular injury, radiology was concerned about the possibility of small fracture involving the glenoid/labrum. Additionally I obtained 5 view x-ray series of the right rib cage including a PA chest, which appears to show at least 1 rib fracture and no pneumothorax on my interpretation. Radiology interpreted this as at least [address] because there may be 3. For these reasons, the patient was sent for a CT of the chest as well as the right shoulder. I reviewed the images and the results which I agree with, basically he shows 3 different ribs that are fractured, one of them is segmental. There is no pulmonary contusion, pneumothorax, or hemothorax. Additionally, he has a fracture of the right scapula extending into the bony labrum according to the radiologist. Patient's pain was treated here with an oral [place] and later a Percocet. His pain did improve with these. We discussed the implications of these fractures and the limitations that we will be on him as result of being in a sling as n eeded, and living at home at least alone for the weekend since his is admitted to the hospital, and his sons can help on occasion but not be there with him 14/03. Given all of this I offered admission for PT/OT, pain control, and possible short-term rehab and placement. Given all the options he declines and prefers to go home. I discussed this at length with him and his sons, and they are all comfortable with this plan. He was given incentive spirometer, sling, prescription for Percocet, and an orthopedic referral and I also advised/encouraged him to follow-up with his PCP for recheck as well. Additionally, referred to bone health given the fractures. Radiography Diagnostic Testing: Clinical Impression(s) from Imaging Studies Shoulder X-Ray 11/11/23 19:04 IMPRESSION: Questionable fracture of the bony labrum. Recommend CT. Electronically Signed: Simón Rust MD at 20:40 EDT Reading Location ID and State: [email or web address] / [employer] , Service support , Ribs w/Chest X-Ray 11/11/23 19:25 IMPRESSION: Age-indeterminate fractures of the posterior right fourth, fifth and sixth ribs. Consider CT. Electronically Signed: Simón Rust MD at 20:41 EDT Reading Location ID and State: [email or web address] / [employer] , Service support , Chest CT 11/11/23 21:00 IMPRESSION: Acute comminuted and mildly displaced fracture of the superior aspect of the right scapula extending to the right labrum. Acute mildly displaced fractures of the right posterior lateral fourth and fifth ribs as well as the right anterolateral fifth and sixth ribs. No pneumothorax. Electronically Signed: Simón Rust MD at 22:10 EDT Reading Location ID and State: [email or web address] / [employer] , Service support , Upper Extremity CT 11/11/23 21:00 IMPRESSION: Acute comminuted and mildly displaced fracture of the superior aspect of the right scapula extending to the right labrum. Acute mildly displaced fractures of the right posterior lateral fourth and fifth ribs as well as the right anterolateral fifth and sixth ribs. No pneumothorax. Electronically Signed: Simón Rust MD at 22:12 EDT Reading Location ID and State: [email or web address] / [employer] , Service support , Discharge Plan Triage Chief Complaint: Fall ED Provider: Lazarus Sargent Dx/Rx/DC Orders Clinical Impression: Fracture of multiple ribs of right side, Fracture of scapula, right, closed Instructions: Shoulder Blade or Collarbone ..., ED Rib Fracture, ED Sling Prescriptions: New oxycodone-acetaminophen [oxycodone-acetaminophen] 5-325 mg tablet 1 tab PO Q6H PRN PRN (Reason: Pain) 5 Days Qty: 20 0RF No Action lisinopril 20 mg tablet 1 tab PO DAILY propranolol 60 mg capsule,extended release 24 hr 20 mg PO DINNER multivitamin Tablet 1 tab PO DAILY Neuriva Plus 0.85 mg-200 mcg-1.2 mcg Tablet,Chewable 1 tab PO DAILY Stand Alone Forms: Bone Health Referral Primary Care Provider: Penny Dyer Referrals: Penny Dyer MD [Primary Care Provider] - (call for follow up appt to check on how you are doing and if you need anything else like home health, refill on pain medication, etc.) Ward Elder MD [Med Staff - Active Staff] - As soon as possible (call for appt) Activity Restrictions/Additional Instructions: Use incentive spirometer ideally 10 times per hour while awake, daily. You may take an occasional ibuprofen in addition to the prescription pain medication as needed, and you may also take Tylenol, but make sure you limit your Tylenol/acetaminophen dosage to 4000 mg or less every 24 hours. Disposition Disposition: Home, Self Care
[2023-11-11 23:38] VITALS: BP 143/74; PULSE 79; RESP 18; TEMP 36.8; O2SAT 98
== END 2023-11-11 23:39 | disposition home or self-care (01) ==
PROVIDERS: Emergency Provider Emergency Medicine; PCP Internal Medicine; Visit Provider Emergency Medicine
DX: S22.41XA Multiple fractures of ribs, right side, initial encounter for closed fracture (principal); S42.101A Fracture of unspecified part of scapula, right shoulder, initial encounter for closed fracture; W01.198A Fall on same level from slipping, tripping and stumbling with subsequent striking against other object, initial encounter; I10 Essential (primary) hypertension; Z79.899 Other long term (current) drug therapy; Z85.828 Personal history of other malignant neoplasm of skin; Z96.649 Presence of unspecified artificial hip joint
CPT/HCPCS: 71101; 71250; 73030; 73200; 99284

== ENCOUNTER 2023-11-12 09:29 | Inpatient (IN) | payer MEDICARE, OTHER, SELFPAY ==
[2023-11-12] VITALS (8 sets, daily range): BP systolic 118–157; BP diastolic 67–87; PULSE 72–81; RESP 15–19; TEMP 36.4–36.8; O2SAT 95–99; BMI 23.6
[2023-11-12] MEDS: Morphine 4 MG/ML Syringe IV (10:24)
[2023-11-12] MEDS: Ondansetron 4 MG/2 ML Vial IV (10:24)
[2023-11-12 10:34] LABS: Absolute Lymphocyte Count 1.14 X10^3/uL (0.83-4.51); Absolute Neutrophil Count 6.6 X10^3/uL (2.0-7.7); Basophil# 0.03 X10^3/uL; Basophil% 0.3 % (0-1); Eosinophil# 0.08 X10^3/uL; Eosinophils% 0.9 % (0-5); Hematocrit 35.8 % (40-54); Hemoglobin 11.4 g/dL (13.0-16.5); Lymphocyte # 1.14 X10^3/ul (0.83-4.51); Lymphocyte % 12.9 % (19-41); Mean Corp Hgb Conc 31.8 g/dL (32-36); Mean Corpuscular Hgb 29.9 pg (27.0-32.0); Mean Platelet Vol. 10.9 fl (6.2-12.0); Monocyte# 0.97 X10^3/uL; NRBC Flagged by Analyzer 0 % (0-5); Neutrophil % 74.6 % (47-70); Platelet Count 123 K/mm3 (150-450); RBC Distribution Width CV 13.2 % (11.6-14.6); RBC Distribution Width SD 45.2 fl (35.1-43.9); Red Blood Count 3.81 M/mm3 (4.6-6.2); White Blood Count 8.9 K/mm3 (4.4-11.0)
[2023-11-12 10:40] LABS: ALB/GLOB Ratio 0.9 RATIO (0.9-2.4); AST(SGOT) 30 U/L (15-37); Alanine Aminotransfer ALT/SGPT 26 U/L (16-61); Albumin, Serum 3.1 g/dL (3.2-5.0); Alkaline Phosphatase 72 U/L (45-117); Anion Gap 4 (5-15); BUN 22 mg/dL (7-18); Calcium,Total 8.7 mg/dL (8.5-10.1); Chloride 107 mmol/L (98-107); EST Glomerular Filtration Rate 68 mL/min (>60); Est Glom Filt Rate - Afr Amer 83 mL/min (>60); Globulin 3.4 g/dL (2.2-4.2); Glucose 167 mg/dL (74-106); Lipase 11 U/L (13-75); Potassium 3.9 mmol/L (3.5-5.1); Protein, Total 6.5 g/dL (6.4-8.2); Sodium Level 141 mmol/L (136-145)
--- NOTE | 2023-11-12 11:03 | EDS_ITS ---
HPI History of Present Illness Chief Complaint: Chest Other Detail of Chief Complaint: Unable to care for self due to right rib fractures and right scapular fract Informant: patient and family Onset/Context/Timing Onset: Yesterday Mechanism/Context: Blunt Injury and Fall Location: Right scapular fracture extending into the labrum and posterior fourth fift Current Severity: Moderate Maximum Severity: Severe Worsened by: Attempt at movement Relieved by: Nothing Associated Symptoms Associated Symptoms: Positive for Weakness, Loss of function and Inability to ambulate (Without assistance); Negative for Parasthesias, Loss of consciousness or Amnesia Narrative Narrative: Patient is an 78-year-old male who resides at home. His is present in the hospital after hernia surgery. He was seen last evening. Records from last evening were reviewed. Patient was noted to have posterior right fourth and fifth rib fractures and anterior lateral fifth and sixth rib fractures. He also had a fracture of the scapula that extended into the labrum. Patient has not had any pain medicine since 2199. Prescription was sent however family did not wait. Son stayed with him. He is unable to rise from a sitting position or from bed. He is unable to do anything independently as far as dressing, bathing or clothing himself. Family is concerned that he cannot care for himself. Last evening was recommended he be admitted. He felt he could go home. He now presents because he cannot care for himself. Prior similar symptoms: Yes Recent Illness/Hospitalization: Yes [facility] Medical History Arthritis BCC (basal cell carcinoma of skin) Change in mole Hypertension Skin lesion Home Medications lisinopril 20 mg tablet 1 tab PO DAILY BLOOD PRESSURE 02/28/20 [History Last Taken Unknown] B6 0.85 mg-folic 200 [id number] oral chewable tablet (Neuriva Plus) 1 tab PO DAILY SUPPLEMENT 02/15/23 [History Last Taken Unknown] propranolol 60 mg capsule,24 hr,extended release 20 mg PO DINNER TREMORS 02/15/23 [History Last Taken Unknown] oxycodone-acetaminophen 5 mg-325 mg tablet 1 tab PO Q6H PRN PRN Pain 5 days #20 TABLETS 11/11/23 [Rx Last Taken Unknown] Vitamin D DAILY 11/12/23 [History Last Taken Unknown] cyanocobalamin (vitamin B-12) 250 mcg tablet (Vitamin B-12) 250 mcg PO DAILY 11/12/23 [History Last Taken Unknown] Allergy/AdvReac Type Severity Reaction Status Date / Time No Known Allergies Allergy Verified 11/12/23 09:36 Family History Brother Cancer Father Heart disease Surgical History Status post hip replacement Social History (Updated 11/12/23 @ 11:[address] Jericho Muñoz MD) household members: spouse Smoking Status: Never smoker substance use type: does not use ROS ROS ED Constitutional Constitutional ED: Denies chills, fever(s), subjective, sweats or weight loss Eyes Eyes: Denies blurry vision or change in vision ENT ENT ED: Denies ear pain, rhinorrhea or sore throat Cardiovascular Cardiovascular: Reports chest pain; Denies palpitations, paroxysmal nocturnal dyspnea or racing heartbeat Respiratory/Chest Respiratory/Chest: Denies cough, dyspnea, dyspnea on exertion or paroxysmal nocturnal dyspnea Gastrointestinal Gastrointestinal: Denies abdominal pain, nausea or vomiting Musculoskeletal Musculoskeletal: Reports other Details: Right shoulder pain. He is right-hand dominant. ; Denies arthralgias, back pain, myalgias or neck pain Neurologic Neurologic: Denies paresthesias Hematologic/Lymphatic Hematologic/Lymphatic: Denies easy bleeding or easy bruising EXAM Physical Exam Const Vital Signs: 11/12/23 09:32 11/12/23 09:35 11/12/23 10:53 Temperature 97.9 F Temperature Source Oral Pulse Rate 77 Pulse Rate [Lying] 72 Pulse Rate [Sitting (for 1 minute prior to obtaining)] 77 Pulse Rate [Standing (for 1 minute prior to obtaining)] 76 Respiratory Rate 16 Respiratory Effort Normal Non-Labored Blood Pressure 139/69 H Blood Pressure [Lying] 118/67 Blood Pressure [Sitting (for 1 minute prior to obtaining)] 142/75 H Blood Pressure [Standing (for 1 minute prior to obtaining)] 138/79 H Blood Pressure Mean 92 Blood Pressure Mean [Lying] 84 Blood Pressure Mean [Sitting (for 1 minute prior to obtaining)] 97 Blood Pressure Mean [Standing (for 1 minute prior to obtaining)] 98 Pulse Ox 98 Oxygen Delivery Method Room Air 11/12/23 13:34 11/12/23 14:32 Temperature 97.9 F Temperature Source Pulse Rate 72 72 Pulse Rate [Lying] Pulse Rate [Sitting (for 1 minute prior to obtaining)] Pulse Rate [Standing (for 1 minute prior to obtaining)] Respiratory Rate 19 H 19 H Respiratory Effort Blood Pressure 119/87 H 119/87 H Blood Pressure [Lying] Blood Pressure [Sitting (for 1 minute prior to obtaining)] Blood Pressure [Standing (for 1 minute prior to obtaining)] Blood Pressure Mean 97 97 Blood Pressure Mean [Lying] Blood Pressure Mean [Sitting (for 1 minute prior to obtaining)] Blood Pressure Mean [Standing (for 1 minute prior to obtaining)] Pulse Ox 95 95 Oxygen Delivery Method Room Air Positive well nourished and well developed Constitutional Narrative: Patient appears uncomfortable. Vital signs are noted. Orthostatic vital signs were normal. General Appearance ED: well developed HEENT HEENT Narrative: Ears normal. Nares patent. atraumatic; Negative for tenderness Nose: Negative for septum abnormal Eyes PERRL and EOMs intact bilaterally General Eye ED: Yes other Other Details: There is no subconjunctival hemorrhage. Sclera is anicteric. Neck full ROM General: Negative for tenderness Chest Wall inspection of chest normal and palpation of chest normal Chest Narrative: There is pain outpatient right side of the chest. There is no subcutaneous air noted. Resp normal respiratory effort and clear to auscultation bilaterally Auscultation: diminished lung sounds right Cardio regular rhythm, S1 normal heart sound, S2 normal heart sound and no murmurs GI normal to inspection, nondistended, normoactive bowel sounds, non-tender, non- distended and no masses Back/Spine normal to inspection and no thoracic nor lumbar tenderness Extremity normal to inspection; Negative for full ROM Extremity Narrative: Limited range of motion right shoulder due to pain and fracture described in the history of present illness. Neuro oriented x3, CN's II-XII intact bilaterally, no focal motor deficits and no sensory deficits noted [place] Coma Scale: document GCS findings Spontaneous Obeys Commands Oriented 15 Sensorium / Orientation: alert Psych mental status grossly normal and thought process normal Skin no rashes or lesions noted, no wounds and no jaundice MDM MDM MDM Narrative Medical decision making narrative: Prior records reviewed. Patient has multiple rib fracture as well as fracture of the right scapula. Will medicate patient. If patient unable to ambulate safely or rise from a sitting position will contact hospitalist for observation. Since patient has multiple rib fractures will obtain CBC to assess H&H and determine if there is a difference. Also basic metabolic panel to assess BUN to creatinine ratio as well as electrolytes. History & Record Review Additional record(s) reviewed:: Prior ED visit and Prior labs Lab Data Attestation: I reviewed the patient's lab results. Lab results narrative: CBC reveals mild anemia with an H&H 11.4 and 35.8 with normal indices. Basic m etabolic panel reveals a glucose of 167 with a normal CO2 anion gap. BUN to creatinine ratio is 20:1. Transaminases are normal. Labs: Laboratory Results - last 24 hr 11/12/23 10:17 WBC 8.9 RBC 3.81 L Hgb 11.4 L Hct 35.8 L MCV 94.0 MCH 29.9 MCHC 31.8 L RDW Std Deviation 45.2 H RDW Coeff of [place] 13.2 Plt Count 123 L MPV 10.9 Immature Gran % (Auto) 0.300 Neut % (Auto) 74.6 H Lymph % (Auto) 12.9 L [place] % (Auto) 11.0 H Eos % (Auto) 0.9 Baso % (Auto) 0.3 Absolute Neuts (auto) 6.6 Absolute Lymphs (auto) 1.14 Nucleated RBC % 0 Sodium 141 Potassium 3.9 Chloride 107 Carbon Dioxide 30.0 Anion Gap 4 L BUN 22 H Creatinine 1.10 Est GFR (MDRD) Af Amer 83 Est GFR (MDRD) Non-Af 68 BUN/Creatinine Ratio 20.0 Glucose 167 H Calcium 8.7 Total Bilirubin 0.80 AST 30 ALT 26 Alkaline Phosphatase 72 Total Protein 6.5 Albumin 3.1 L Globulin 3.4 Albumin/Globulin Ratio 0.9 Lipase 11 L Treatment and Re-Evaluation Narrative: Observed patient ambulating in room without difficulty. Did not desaturate. Son is adamant that he cannot go home. Case management was consulted. black off worker/case management saw patient. It is their opinion that patient needs to be admitted since they have a two-story home and he cannot go up the steps apparently stepped on the sofa. His is present in the hospital. For this reason hospitalist was called for observation status Discharge Plan Dx/Rx/DC Orders Clinical Impression: Failure of outpatient treatment, Fracture of multiple ribs of right side, Closed fracture of right scapula, Multiple fractures of ribs of right side Disposition Disposition: Acute Care Hospital [facility]
--- NOTE | 2023-11-12 13:43 | CASEMGMT ---
Social Work ED called for SW to speak w/pt and son, to help determine plan. SW met w/pt and son Jason in room. As per Jason, pt was just here yesterday, and went home about midnight. The physician yesterday offered to have pt be brought into the hospital to be assessed and considered for placement in the unit here possibly(TCU). Son explains they decided to go home, and it has not gone well. Though pt was able to walk in the ED, son states pt is unsteady. Their home is two floors, and pt cannot get up the stairs. Pt was trying to sleep on the couch and he was not able to get up w/o assist. Pt lives w/ Charlene who just had hernia surgery and is not able to help pt. Pt's son Jason stayed w/pt last night, and he states within 3 hours of being home it was clear they made the wrong choice in going home, so brought pt back to be reassessed and look into pt going to TCU(or another place for rehab). PCP: Dr. Dyer Specialists: none Insurance: [facility], for prescriptions also Pharmacy: [facility] here in [place] Living arrangements: Pt is normally independent at home, lives home w/ Charlene in a two story home. Pt does the cooking and cleaning, Charlene organizes the medications. Pt does still drive though son states this is very limited and only around town. Normally pt can get up the stairs. LNOK: Son Jason who lives in [place], son Lincoln who is in [place] LW/POA: Nothing on file at [facility] DME: Pt has not needed any DME up until now SNF/HHC: No history of either We spoke about options, including going home w/home health vs coming into the hospital for observation and prison placement. Both pt and son in agreement that pt cannot manage at home at present w/the broken clavicle and ribs. They tried and three hours in they realized that they should have agreed to pt being brought in yesterday when here. The would like a referral to TCU. SW did explain it is not known at this time if TCU would have a bed, will get them a list of other places in the area that take pt's insurance. SW explained to pt and son the process, that pt will first need to be accepted, and then once accepted we go to insurance to ask for authorization. SW explained that there is no guarantee insurance will cover the cost. Both state understanding. SW explained will send a list down to the ED for them to review of other facilities, and SW will follow up w/them on Tuesday. SW also explained will make a referral to TCU. SW did send down to ED a list of alf facilities from [facility] in network w/pt's insurance, preferred geographic area and complete w/quality and resource use data. SW made referral to TCU, will follow up on Tuesday. JAMES Rosales
--- NOTE | 2023-11-12 14:16 | HP.PCM.HOS_ITS ---
HPI - General General Date of Admission: 11/12/23 Date of Service: 11/12/23 Chief Complaint: Difficulty in self-care following fracture HPI Narrative BJORN ARTEAGA, is a 78 M who presents to the ED with concerns regarding difficulty taking care of himself falling a right rib and scapular fracture. He was seen in the ED yesterday 11/11/2023 following a fall on 11/10/2023 while getting up from his bed at night that resulted in posterior right fourth and fifth rib fractures and anterior lateral fifth and sixth rib fractures. He also had a fracture of the scapula that extended into the labrum. Initially his pain was treated with [place] and Percocet. His pain improved with the medications, he was recommended to get admitted as he is living alone at home. Yesterday he declined and wanted to be discharged home. He presents here today unable to function at home. His underwent hernia repair surgery and was discharged from the hospital this morning, she generally takes care of his medication needs, but would not be able to do so because of her recent surgery. He has severe limitations in taking care of his activities of daily living. He is presently getting admitted for PT OT evaluation, SNF/acute rehab placement. PENDING SALE TO [facility] Medical History Arthritis BCC (basal cell carcinoma of skin) Change in mole Hypertension Skin lesion Home Medications lisinopril 20 mg tablet 1 tab PO DAILY BLOOD PRESSURE 02/28/20 [History Last Taken Unknown] B6 0.85 mg-folic 200 [id number] oral chewable tablet (Neuriva Plus) 1 tab PO DAILY SUPPLEMENT 02/15/23 [History Last Taken Unknown] propranolol 60 mg capsule,24 hr,extended release 20 mg PO DINNER TREMORS 02/15/23 [History Last Taken Unknown] oxycodone-acetaminophen 5 mg-325 mg tablet 1 tab PO Q6H PRN PRN Pain 5 days #20 TABLETS 11/11/23 [Rx Last Taken Unknown] Vitamin D DAILY 11/12/23 [History Last Taken Unknown] cyanocobalamin (vitamin B-12) 250 mcg tablet (Vitamin B-12) 250 mcg PO DAILY 11/12/23 [History Last Taken Unknown] Allergy/AdvReac Type Severity Reaction Status Date / Time No Known Allergies Allergy Verified 11/12/23 09:36 Family History Brother Cancer Father Heart disease Surgical History Status post hip replacement Social History (Updated 11/12/23 @ 11:[address] Jericho Muñoz MD) household members: spouse Smoking Status: Never smoker substance use type: does not use ROS Review of Systems ROS Unobtainable: Denies due to encephalopathy, due to endotracheal tube, due to mental condition, due to mental status or other Constitutional Constitutional: Denies anorexia, change in weight, chills, fatigue, fever(s), malaise, night sweats, weakness or other Eyes Eyes: Denies blurry vision, change in eye color, change in vision, discharge from eye(s), double vision, erythema, eye pain, loss of vision or other ENT HEENT: Denies abnormal hearing, dysphagia, ear pain, epistaxis, headache(s), hearing loss, nasal congestion, nasal discharge, post nasal drip, sinus pressu re, sore throat or other Cardiovascular Cardiovascular: Reports lightheadedness; Denies chest pain, claudication, dyspnea on exertion, edema, orthopnea, palpitations, paroxysmal nocturnal dyspnea, rapid heart rate, syncope or other Respiratory/Chest Respiratory/Chest: Denies cough, dyspnea, excessive phlegm production, hemoptysis, productive cough, shortness of breath at rest, shortness of breath with exertion, wheezing or other Gastrointestinal Gastrointestinal: Denies abdominal pain, coffee ground emesis, constipation, diarrhea, dyspepsia, hematemesis, hematochezia, loose stools, melena, nausea, vomiting or other Genitourinary Genitourinary: Denies burning urination, difficulty urinating, dysuria, hematuria, nocturia, urinary frequency, urinary hesitancy, urinary incontinence, urinary urgency or other Musculoskeletal Musculoskeletal: Reports back pain and joint pain; Denies arthralgias, joint stiffness, joint swelling, myalgias, neck pain or other Neurologic Neurologic: Denies abnormal gait, abnormal speech, confusion, disequilibrium, dizziness, focal weakness, headache(s), numbness, paresthesias, seizure-like activity, seizures, syncope, tingling, tremor(s) or other Psychiatric Psychiatric: Denies anxiety, depression, homicidal ideation, suicidal ideation or other Endocrine Endocrinology: Denies change in body appearance, cold intolerance, excessive sweating, heat intolerance, polydipsia, polyuria or other Hematologic/Lymphatic Hematologic/Lymphatic: Denies anemia, easy bleeding, easy bruising, lymphadenopathy or other Vital Signs Vital Signs Vital Signs: 11/12/23 09:32 11/12/23 09:35 11/12/23 10:53 Temperature 97.9 F Temperature Source Oral Pulse Rate 77 Pulse Rate [Lying] 72 Pulse Rate [Sitting (for 1 minute prior to obtaining)] 77 Pulse Rate [Standing (for 1 minute prior to obtaining)] 76 Respiratory Rate 16 Respiratory Effort Normal Non-Labored Blood Pressure 139/69 H Blood Pressure [Lying] 118/67 Blood Pressure [Sitting (for 1 minute prior to obtaining)] 142/75 H Blood Pressure [Standing (for 1 minute prior to obtaining)] 138/79 H Blood Pressure Mean 92 Blood Pressure Mean [Lying] 84 Blood Pressure Mean [Sitting (for 1 minute prior to obtaining)] 97 Blood Pressure Mean [Standing (for 1 minute prior to obtaining)] 98 Pulse Ox 98 Oxygen Delivery Method Room Air 11/12/23 13:34 Temperature Temperature Source Pulse Rate 72 Pulse Rate [Lying] Pulse Rate [Sitting (for 1 minute prior to obtaining)] Pulse Rate [Standing (for 1 minute prior to obtaining)] Respiratory Rate 19 H Respiratory Effort Blood Pressure 119/87 H Blood Pressure [Lying] Blood Pressure [Sitting (for 1 minute prior to obtaining)] Blood Pressure [Standing (for 1 minute prior to obtaining)] Blood Pressure Mean 97 Blood Pressure Mean [Lying] Blood Pressure Mean [Sitting (for 1 minute prior to obtaining)] Blood Pressure Mean [Standing (for 1 minute prior to obtaining)] Pulse Ox 95 Oxygen Delivery Method Room Air Physical Exam Const alert and oriented x3 Constitutional Narrative: Slowed responses, but the son his cognition has declined recently. General Appearance: cooperative HEENT normocephalic and head/scalp atraumatic Resp normal respiratory effort and no retractions Cardio regular rate and regular rhythm GI normal to inspection, nondistended, normoactive bowel sounds Extremity normal to inspection Results Lab / Micro Data Attestation: I reviewed the patient's lab results. 11/12/23 10:17 11/12/23 10:17 Labs: Laboratory Results - last 24 hr 11/12/23 10:17: WBC 8.9, RBC 3.81 L, Hgb 11.4 L, Hct 35.8 L, MCV 94.0, MCH 29.9, MCHC 31.8 L, RDW Std Deviation 45.2 H, RDW Coeff of [place] 13.2, Plt Count 123 L, MPV 10.9, Immature Gran % (Auto) 0.300, Neut % (Auto) 74.6 H, Lymph % (Auto) 12.9 L, [place] % (Auto) 11.0 H, Eos % (Auto) 0.9, Baso % (Auto) 0.3, Absolute Neuts (auto) 6.6, Absolute Lymphs (auto) 1.14, Nucleated RBC % 0, Sodium 141, Potassium 3.9, Chloride 107, Carbon Dioxide 30.0, Anion Gap 4 L, BUN 22 H, Creatinine 1.10, Est GFR (MDRD) Af Amer 83, Est GFR (MDRD) Non-Af 68, BUN/Cre atinine Ratio 20.0, Glucose 167 H, Calcium 8.7, Total Bilirubin 0.80, AST 30, ALT 26, Alkaline Phosphatase 72, Total Protein 6.5, Albumin 3.1 L, Globulin 3.4, Albumin/Globulin Ratio 0.9, Lipase 11 L Imaging Shoulder X-Ray 11/11/23 19:04 IMPRESSION: Questionable fracture of the bony labrum. Recommend CT. Electronically Signed: Simón Rust MD at 20:40 EDT , Ribs w/Chest X-Ray 11/11/23 19:25 IMPRESSION: Age-indeterminate fractures of the posterior right fourth, fifth and sixth ribs. Consider CT. Electronically Signed: Simón Rust MD at 20:41 EDT , Chest CT 11/11/23 21:00 IMPRESSION: Acute comminuted and mildly displaced fracture of the superior aspect of the right scapula extending to the right labrum. Acute mildly displaced fractures of the right posterior lateral fourth and fifth ribs as well as the right anterolateral fifth and sixth ribs. No pneumothorax. Electronically Signed: Simón Rust MD at 22:10 EDT , Upper Extremity CT 11/11/23 21:00 IMPRESSION: Acute comminuted and mildly displaced fracture of the superior aspect of the right scapula extending to the right labrum. Acute mildly displaced fractures of the right posterior lateral fourth and fifth ribs as well as the right anterolateral fifth and sixth ribs. No pneumothorax. Electronically Signed: Simón Rust MD at 22:12 EDT , Assessment & Plan Assessment/Plan (1) Multiple fractures of ribs of right side: PLAN: Plan 78-year-old male with recent fracture of posterior right fourth and fifth rib fractures and anterior lateral fifth and sixth rib fracture and scapula presents to the ED due to inability to take care of himself at home and further acute adolfo ab placement. 1. Right scapular, rib fractures.: -Plan is to manage conservatively -Pain control with Tylenol and oxycodone -Physical therapy and Occupational Therapy evaluation -Saturation is normal at this time and no features of respiratory compromise 2. Declining functional status, inability to take care of activities of daily living: -Case management evaluation -PT/OT evaluation for placement and needs assessment -Supervised mobility in the hospital 3. Hypertension not on on lisinopril as needed if the blood pressure is above 140/90 at home. Given the orthostatic symptoms, will hold off medications for now. 4. Tremors: Was previously on propranolol but it has been discontinued in view of declining mental acuity. 5. Suspected dementia: High risk for delirium -All delirium precautions -Minimal use of oxycodone and interspersed with Tylenol -Laxatives as needed to prevent opioid-induced constipation 6. DVT prophylaxis: Start enoxaparin for moderate risk of DVT given the immobi lization
[2023-11-12] MEDS: oxyCODONE 5 MG Tablet PO ×2 (16:11→22:20)
[2023-11-13 03:00] VITALS: BP 122/67; PULSE 84; RESP 15; TEMP 37.4; O2SAT 95; O2SAT 97
[2023-11-13] MEDS: oxyCODONE 5 MG Tablet PO ×3 (03:33→20:04)
[2023-11-13 06:52] LABS: Absolute Neutrophil Count 5.6 X10^3/uL (2.0-7.7); Basophil# 0.04 X10^3/uL; Basophil% 0.5 % (0-1); Eosinophil# 0.26 X10^3/uL; Hematocrit 37.4 % (40-54); Hemoglobin 12.1 g/dL (13.0-16.5); Mean Corp Hgb Conc 32.4 g/dL (32-36); Mean Corpuscular Hgb 30.6 pg (27.0-32.0); Mean Corpuscular Volume 94.4 fL (80-94); Mean Platelet Vol. 11.2 fl (6.2-12.0); Monocyte# 0.83 X10^3/uL; Monocyte% 9.7 % (0-10); NRBC Flagged by Analyzer 0 % (0-5); Neutrophil # 5.61 X10^3/uL (2.7-7.7); Neutrophil % 65.6 % (47-70); Platelet Count 136 K/mm3 (150-450); RBC Distribution Width CV 13.2 % (11.6-14.6); RBC Distribution Width SD 45.2 fl (35.1-43.9); Red Blood Count 3.96 M/mm3 (4.6-6.2); White Blood Count 8.6 K/mm3 (4.4-11.0)
[2023-11-13 06:57] LABS: International Normalized Ratio 1.1; Prothrombin Time (Protime)PT. 14.5 SECONDS (11.7-14.9)
[2023-11-13 07:27] LABS: ALB/GLOB Ratio 0.9 RATIO (0.9-2.4); AST(SGOT) 32 U/L (15-37); Alanine Aminotransfer ALT/SGPT 25 U/L (16-61); Albumin, Serum 3.2 g/dL (3.2-5.0); Alkaline Phosphatase 73 U/L (45-117); Anion Gap 4 (5-15); BUN 19 mg/dL (7-18); BUN/Creat Ratio 19.9 RATIO (10-20); Bilirubin, Direct 0.32 mg/dL (0.00-0.30); Calcium,Total 8.6 mg/dL (8.5-10.1); Chloride 106 mmol/L (98-107); Creatinine, Serum 0.96 mg/dL (0.70-1.30); EST Glomerular Filtration Rate 80 mL/min (>60); Est Glom Filt Rate - Afr Amer 97 mL/min (>60); Estimated Creatinine Clearance 65.36 ml/min; Globulin 3.7 g/dL (2.2-4.2); Glucose 102 mg/dL (74-106); Magnesium 2.4 mg/dL (1.6-2.6); Potassium 3.9 mmol/L (3.5-5.1); Protein, Total 6.9 g/dL (6.4-8.2); Sodium Level 139 mmol/L (136-145); Thyroid Stim Hormone (TSH) 1.46 uIU/mL (0.358-3.74)
[2023-11-13 07:29] LABS: Phosphorus 3.1 mg/dL (2.5-4.9)
[2023-11-13 07:47] VITALS: BP 127/76; PULSE 75; RESP 16; TEMP 37.2; O2SAT 96
[2023-11-13] MEDS: Bisacodyl 5 MG Tablet PO (07:48)
[2023-11-13] MEDS: Enoxaparin 40 MG/0.4 ML Syringe SC (07:48)
[2023-11-13 09:35] VITALS: BMI 23.5
[2023-11-13 14:00] VITALS: BP 146/86; PULSE 82; RESP 16; TEMP 36.9; O2SAT 94
--- NOTE | 2023-11-13 16:41 | PCM.PN.HOSP ---
Subjective Subjective Doing well, denies any significant he does have pain on the right side of his chest Objective Data Objective Data Vital Signs: Vital Signs Temp Pulse Resp BP Pulse Ox O2 Del Method 98.5 F 82 16 146/86 H 94 Room Air 11/13/23 14:00 11/13/23 14:00 11/13/23 14:00 11/13/23 14:00 11/13/23 14:00 11/13/23 14:00 Oxygen Delivery Method Room Air Weight: 169 lb Body Mass Index (BMI) 23.6 Intake & Output: Intake and Output for Last 24 Hours 11/12/23 11/13/23 11/14/23 03:59 03:59 03:59 Intake Total 350 / 350 100 / 100 Balance 350 / 350 100 / 100 Lab / Micro Data 11/13/23 05:28 11/13/23 05:25 Labs: Laboratory Results - last 24 hr 11/13/23 05:25: Sodium 139, Potassium 3.9, Chloride 106, Carbon Dioxide 29.0, Anion Gap 4 L, BUN 19 H, Creatinine 0.96, Estim Creat Clear Calc 65.36, Est GFR (MDRD) Af Amer 97, Est GFR (MDRD) Non-Af 80, BUN/Creatinine Ratio 19.9, Glucose 102, Calcium 8.6, Phosphorus 3.1, Magnesium 2.4, Total Bilirubin 0.90, Direct Bilirubin 0.32 H, AST 32, ALT 25, Alkaline Phosphatase 73, Total Protein 6.9, Albumin 3.2, Globulin 3.7, Albumin/Globulin Ratio 0.9, TSH 1.46 11/13/23 05:28: WBC 8.6, RBC 3.96 L, Hgb 12.1 L, Hct 37.4 L, MCV 94.4 H, MCH 30.6, MCHC 32.4, RDW Std Deviation 45.2 H, RDW Coeff of [place] 13.2, Plt Count 136 L, MPV 11.2, Immature Gran % (Auto) 0.200, Neut % (Auto) 65.6, Lymph % (Auto) 21.0, [place] % (Auto) 9.7, Eos % (Auto) 3.0, Baso % (Auto) 0.5, Absolute Neuts (auto) 5.6, Absolute Lymphs (auto) 1.80, Nucleated RBC % 0, PT 14.5, INR 1.1 Physical Exam Narrative General: Alert, Oriented x3, Cooperative, No apparent distress HEENT: Atraumatic, PERRLA, EOMI, Normocephalic Oral: Moist Mucosa Neck: Supple, No JVD Lungs: Diminished, Normal air movement, No rhonchi, No wheeze, No rales, slight tenderness to palpation his right lower chest wall Cardiovascular: Regular rate, Regular Rhythm, Normal S1, Normal S2, No murmurs Abdomen: Soft, Non Tender, Non-Distended, No Hepato-splenomegaly Extremities: No edema, Capillary Refill Less than 3 Seconds Skin: No rashes, No breakdown Musculoskeletal: No Tenderness to Palpation of Joints or Extremities Neurological: No focal neurological deficits, Motor Exam 5/5 strength throughout, Sensory exam intact to light touch and pain Psych/Mental Status: Normal Affect, Appropriate Assessment & Plan Assessment/Plan (1) Multiple fractures of ribs of right side: PLAN: Plan 1. Right scapular and right rib fractures secondary to mechanical fall/debility and declining functional status with inability to complete ADLs ? Can place his right arm into a sling when out of bed for comfort with his right scapular fracture ? He does have rib fractures right posterior lateral fourth and fifth ribs as well as the anterior lateral fifth and sixth ribs, the chest wall does not have any paradoxical motion ? Continue to encourage incentive spirometry ? PT/OT for evaluation and discharge planning to SNF 2. Essential tremor ? He was on propranolol which has been on hold secondary to his frequent falls 3. Essential hypertension ? Apparently does not take his lisinopril anymore, will monitor his blood pressures and make adjustments as necessary DVT: Lovenox Charges/Coding Visit Charges Inpatient E&M: 92886 Subs Hosp L2
[2023-11-13 20:02] VITALS: BP 129/72; PULSE 82; RESP 16; TEMP 36.5; O2SAT 96
[2023-11-14 02:21] VITALS: BP 123/71; PULSE 68; RESP 16; TEMP 37.4; O2SAT 93
[2023-11-14] MEDS: oxyCODONE 5 MG Tablet PO ×2 (06:05→13:59)
[2023-11-14] MEDS: Bisacodyl 5 MG Tablet PO (06:05)
[2023-11-14 06:36] VITALS: TEMP 36.4
[2023-11-14 08:19] VITALS: BP 128/60; PULSE 72; RESP 16; TEMP 36.6; O2SAT 94
--- NOTE | 2023-11-14 10:15 | CASEMGMT ---
Social Work SW contacted Patricia in TCU, they will be able to take pt tomorrow. SW spoke w/pt and son Corey in room in regard to discharge plan. SW explained to pt and son that TCU will have a bed for pt tomorrow. SW explained that this SW had incorrect information on Tuesday, as thought [facility] was primary. However it looks like Medicare is primary. Pt confirms this to be true. SW explained the Medicare benefit for half-way facility, son states understanding. SW will continue to follow, anticipate discharge to TCU on Tuesday. JAMES Rosales
[2023-11-14] MEDS: Enoxaparin 40 MG/0.4 ML Syringe SC (10:18)
--- NOTE | 2023-11-14 12:50 | PCM.PN.HOSP ---
Subjective Subjective Doing well, No issues overnight. Pain is controlled Objective Data Objective Data Vital Signs: Vital Signs Temp Pulse Resp BP Pulse Ox O2 Del Method 97.9 F 72 16 128/60 H 94 Room Air 11/14/23 08:19 11/14/23 08:19 11/14/23 08:19 11/14/23 08:19 11/14/23 08:19 11/14/23 08:19 Oxygen Delivery Method Room Air Weight: 168 lb 6.4 oz Body Mass Index (BMI) 23.5 Intake & Output: Intake and Output for Last 24 Hours 11/13/23 11/14/23 11/15/23 03:59 03:59 03:59 Intake Total 350 / 350 300 / 300 200 / 200 Balance 350 / 350 300 / 300 200 / 200 Lab / Micro Data 11/13/23 05:28 11/13/23 05:25 Physical Exam Narrative General: Alert, Oriented x3, Cooperative, No apparent distress HEENT: Atraumatic, PERRLA, EOMI, Normocephalic Oral: Moist Mucosa Neck: Supple, No JVD Lungs: Diminished, Normal air movement, No rhonchi, No wheeze, No rales, slight tenderness to palpation his right lower chest wall Cardiovascular: Regular rate, Regular Rhythm, Normal S1, Normal S2, No murmurs Abdomen: Soft, Non Tender, Non-Distended, No Hepato-splenomegaly Extremities: No edema, Capillary Refill Less than 3 Seconds Skin: No rashes, No breakdown Musculoskeletal: No Tenderness to Palpation of Joints or Extremities Neurological: No focal neurological deficits, Motor Exam 5/5 strength throughout, Sensory exam intact to light touch and pain Psych/Mental Status: Normal Affect, Appropriate Assessment & Plan Assessment/Plan (1) Multiple fractures of ribs of right side: PLAN: Plan 1. Right scapular and right rib fractures secondary to mechanical fall/debility and declining functional status with inability to complete ADLs ? Can place his right arm into a sling when out of bed for comfort with his right scapular fracture ? He does have rib fractures right posterior lateral fourth and fifth ribs as well as the anterior lateral fifth and sixth ribs, the chest wall does not have any paradoxical motion ? Continue to encourage incentive spirometry ? PT/OT for evaluation and discharge planning to SNF 2. Essential tremor ? He was on propranolol which has been on hold secondary to his frequent falls 3. Essential hypertension ? Apparently does not take his lisinopril anymore, will monitor his blood pressures and make adjustments as necessary DVT: Michelle Charges/Coding Visit Charges Inpatient E&M: 80574 Subs Hosp L2
[2023-11-14 13:53] VITALS: BP 119/66; PULSE 87; RESP 16; TEMP 36.7; O2SAT 94
[2023-11-14 20:39] VITALS: BP 141/78; PULSE 84; RESP 16; TEMP 37.1; O2SAT 96
[2023-11-15 03:41] VITALS: BP 142/87; PULSE 72; RESP 16; TEMP 36.4; O2SAT 97
[2023-11-15 07:48] VITALS: BP 121/74; PULSE 80; RESP 16; TEMP 36.7; O2SAT 95
[2023-11-15] MEDS: oxyCODONE 5 MG Tablet PO (07:59)
[2023-11-15] MEDS: Bisacodyl 5 MG Tablet PO (07:59)
[2023-11-15] MEDS: Enoxaparin 40 MG/0.4 ML Syringe SC (09:15)
--- NOTE | 2023-11-15 09:33 | TREXTCAR_ITS ---
Diet Diet Order/Speech Therapy: 11/12/23 15:48 Diet: Regular - General Food consistency:: Regular Liquid Consistency:: Regular/Thin Routine Orders/Code Status Routine Lab Work: CBC and BMP Code Status: Full Code Wound(s) L elbow: Wound Type: Abrasion Therapies Weight Bearing: Weight bearing as tolerated Extremity Affected:: Right Upper Physical Therapy: Eval and Treat Occupational Therapy: Eval and Treat Problem/Diagnosis (1) Multiple fractures of ribs of right side: Status: Acute Code(s): S22.41XA - Multiple fractures of ribs, right side, initial encounter for closed fracture Plan 1. Right scapular and right rib fractures secondary to mechanical fall/debility and declining functional status with inability to complete ADLs ? Can place his right arm into a sling when out of bed for comfort with his right scapular fracture ? He does have rib fractures right posterior lateral fourth and fifth ribs as well as the anterior lateral fifth and sixth ribs, the chest wall does not have any paradoxical motion ? Continue to encourage incentive spirometry ? PT/OT for evaluation and discharge planning to SNF 2. Essential tremor ? He was on propranolol which has been on hold secondary to his frequent falls 3. Essential hypertension ? Apparently does not take his lisinopril anymore, will monitor his blood pressures and make adjustments as necessary DVT: Lovenox Allergies/Procedures Done in Hospital Allergies No Known Allergies Allergy (Verified 11/12/23 09:36) Procedures: None Type of Care/Length of Stay Estimated LOS: Convalescent Care Less Than 30 days Type of Care Needed: Skilled Rehab Potential: Good Prognosis: Good Additional Orders/Day of Discharge Day of Discharge: 11/15/23 Discharge Plan Admission Admit Date/Time: 11/12/23 14:22 Attending Provider: Addy Boston Primary Care Provider: Penny Dyer Consulting Providers: Julieta Ross Discharge Orders/Prescriptions Prescriptions: New oxycodone 5 mg Tablet 5 mg PO Q4H PRN PRN (Reason: PAIN SCORE 4-10/10) 3 Days Qty: 10 0RF Continued Neuriva Plus 0.85 mg-200 mcg-1.2 mcg Tablet,Chewable 1 tab PO DAILY cyanocobalamin (vitamin B-12) [Vitamin B-12] 250 mcg tablet 250 mcg PO DAILY Vitamin D tablet DAILY Patient Comments: PT UNSURE IF IT IS D-2 OR D-3 magnesium 200 mg tablet 200 mg PO DAILY Held lisinopril 20 mg tablet 1 tab PO DAILY Hold Instructions: Resume on 11/16/23. He is only to take is SBP>160 Discontinued propranolol 60 mg capsule,extended release 24 hr 20 mg PO DINNER Hold Instructions: hold per Dr Dyer as tremors decreased oxycodone-acetaminophen [oxycodone-acetaminophen] 5-325 mg tablet 1 tab PO Q6H PRN PRN (Reason: Pain) 5 Days Qty: 20 0RF Patient Comments: PT WAS PRESCRIBED THIS LAST NIGHT (11/11/23) AND HAS NOT PICKED UP YET Referrals / Follow Up: Penny Dyer MD [Primary Care Provider] - Disposition Disposition (needs filled in before D/C Order can be placed): [facility] Facility
--- NOTE | 2023-11-15 10:59 | PHA.DC.MR.R ---
Pharmacy [place] Med Reconciliation Pharmacy Service has performed discharge medication reconciliation for this patient. The patient's discharge medication list was reviewed for discrepancies and discrepancies were resolved. Medications at Discharge Home Medications lisinopril 20 mg tablet 1 tab PO DAILY BLOOD PRESSURE 02/28/20 B6 0.85 mg-folic 200 [id number] oral chewable tablet (Neuriva Plus) 1 tab PO DAILY SUPPLEMENT 02/15/23 Vitamin D DAILY 11/12/23 cyanocobalamin (vitamin B-12) 250 mcg tablet (Vitamin B-12) 250 mcg PO DAILY supplement 11/12/23 magnesium 200 mg tablet 200 mg PO DAILY supplement 11/12/23 oxycodone 5 mg tablet 5 mg PO Q4H PRN PRN PAIN SCORE 4-10/10 3 days #10 tabs 11/15/23
--- NOTE | 2023-11-15 11:15 | CASEMGMT ---
Social Work Pt going to TCU today, TCU can take pt today. ANA faxed over all paperwork, RN on phone at present giving report to TCU. SW called son Jason to let him know pt is going to TCU today. Son in agreement. SW also let pt know he is going to TCU today, he is in agreement. No further needs, pt to TCU skilled today. JAMES Rosales
--- NOTE | 2023-11-15 14:17 | PCM.DC.SUM ---
Providers Date of Admission: 11/12/23 Primary Care Physician: Dr. Penny Dyer MD Reason For Visit: ACUTE FALL Diagnosis Discharge Diagnosis (1) Multiple fractures of ribs of right side: Status: Acute Code(s): S22.41XA - Multiple fractures of ribs, right side, initial encounter for closed fracture Medications at Discharge Home Medications lisinopril 20 mg tablet 1 tab PO DAILY BLOOD PRESSURE 02/28/20 B6 0.85 mg-folic 200 [id number] oral chewable tablet (Neuriva Plus) 1 tab PO DAILY SUPPLEMENT 02/15/23 Vitamin D DAILY supplement 11/12/23 cyanocobalamin (vitamin B-12) 250 mcg tablet (Vitamin B-12) 250 mcg PO DAILY supplement 11/12/23 magnesium 200 mg tablet 200 mg PO DAILY supplement 11/12/23 oxycodone 5 mg tablet 5 mg PO Q4H PRN PRN PAIN SCORE 4-10/10 3 days #10 tabs 11/15/23 Hospital Course Operations None Procedures None Summary of Care Provided Minutes Spent on Discharge: 33 Hospital Course: Per HPI: BJORN ARTEAGA, is a 78 M who presents to the ED with concerns regarding difficulty taking care of himself falling a right rib and scapular fracture. He was seen in the ED yesterday 11/11/2023 following a fall on 11/10/2023 while getting up from his bed at night that resulted in posterior right fourth and fifth rib fractures and anterior lateral fifth and sixth rib fractures. He also had a fracture of the scapula that extended into the labrum. Initially his pain was treated with [place] and Percocet. His pain improved with the medications, he was recommended to get admitted as he is living alone at home. Yesterday he declined and wanted to be discharged home. He presents here today unable to function at home. His underwent hernia repair surgery and was discharged from the hospital this morning, she generally takes care of his medication needs, but would not be able to do so because of her recent surgery. He has severe limitations in taking care of his activities of daily living. He is presently getting admitted for PT OT evaluation, SNF/acute rehab placement. Hospital Course: 1. Right scapular and right rib fractures secondary to mechanical fall/debility and declining functional status with inability to complete ADLs?78-year-old male had presented initially to the ER and was found to have right rib fractures on the posterior lateral fourth and fifth ribs as well as the anterior lateral fifth and sixth ribs. Was also found to have a scapular fracture. He was discharged home with pain medication however presented the next day to the hospital due to an inability to take care of himself and significant difficulties with getting out of a seated position and ambulating. He can place his right arm in a sling with ambulation if that helps with comfort. He was evaluated by PT and OT and was recommended SNF on discharge. He was accepted today to the transitional care unit and I discussed with him the plan for discharge which she was okay with. 2. Essential hypertension and essential tremor both of these disorders were managed with lisinopril and propranolol respectively, however given his frequent falls these medications were changed. His propranolol was completely discontinued as his tremor had diminished in severity, and his lisinopril was transition to being taken only when his systolic blood pressure was greater than 160. Physical Exam Narrative General: Alert, Oriented x3, Cooperative, No apparent distress HEENT: Atraumatic, PERRLA, EOMI, Normocephalic Oral: Moist Mucosa Neck: Supple, No JVD Lungs: Diminished, Normal air movement, No rhonchi, No wheeze, No rales, slight tenderness to palpation his right lower chest wall Cardiovascular: Regular rate, Regular Rhythm, Normal S1, Normal S2, No murmurs Abdomen: Soft, Non Tender, Non-Distended, No Hepato-splenomegaly Extremities: No edema, Capillary Refill Less than 3 Seconds Skin: No rashes, No breakdown Musculoskeletal: No Tenderness to Palpation of Joints or Extremities Neurological: No focal neurological deficits, Motor Exam 5/5 strength throughout, Sensory exam intact to light touch and pain Psych/Mental Status: Normal Affect, Appropriate Weight / BMI Weight Weight: 168 lb 6.4 oz Body Mass Index (BMI) 23.5 ABG / Lab / Microbiology Data 11/13/23 05:28 11/13/23 05:25 Meaningful Use Info Meaningful Use Diagnoses (Choose all that apply): None applicable Discharge Plan Admission Admit Date/Time: 11/12/23 14:22 Attending Provider: Addy Boston Primary Care Provider: Penny Dyer Consulting Providers: Julieta Ross Discharge Orders/Prescriptions Prescriptions: New oxycodone 5 mg Tablet 5 mg PO Q4H PRN PRN (Reason: PAIN SCORE 4-10/10) 3 Days Qty: 10 0RF Continued Neuriva Plus 0.85 mg-200 mcg-1.2 mcg Tablet,Chewable 1 tab PO DAILY cyanocobalamin (vitamin B-12) [Vitamin B-12] 250 mcg tablet 250 mcg PO DAILY Vitamin D tablet DAILY Patient Comments: PT UNSURE IF IT IS D-2 OR D-3 magnesium 200 mg tablet 200 mg PO DAILY Held lisinopril 20 mg tablet 1 tab PO DAILY Hold Instructions: Resume on 11/16/23. He is only to take is SBP>160 Discontinued propranolol 60 mg capsule,extended release 24 hr 20 mg PO DINNER Hold Instructions: hold per Dr Dyer as tremors decreased oxycodone-acetaminophen [oxycodone-acetaminophen] 5-325 mg tablet 1 tab PO Q6H PRN PRN (Reason: Pain) 5 Days Qty: 20 0RF Patient Comments: PT WAS PRESCRIBED THIS LAST NIGHT (11/11/23) AND HAS NOT PICKED UP YET Referrals / Follow Up: Penny Dyer MD [Primary Care Provider] - Disposition Disposition (needs filled in before D/C Order can be placed): [facility] Charges/Coding Visit Charges Inpatient E&M: 23939 Disch Hosp >30min
== END 2023-11-15 14:01 | DRG 884 ==
LOC: ED 13:23 → MS3 14:49
PROVIDERS: Admitting Provider Internal Medicine; Emergency Provider Emergency Medicine; PCP Internal Medicine; Visit Provider Family Medicine
DX: R54 Age-related physical debility (principal); S22.41XA Multiple fractures of ribs, right side, initial encounter for closed fracture; I10 Essential (primary) hypertension; G25.0 Essential tremor; W19.XXXA Unspecified fall, initial encounter; S42.102A Fracture of unspecified part of scapula, left shoulder, initial encounter for closed fracture; R29.6 Repeated falls
CPT/HCPCS: 80048; 80053; 80076; 83690; 83735; 84100; 84443; 85025; 85610; 97162; 97166; 97530; 97535; 99285; A4216; J2405

== ENCOUNTER 2023-11-15 14:05 | Inpatient (IN) | payer OTHER, MEDICARE, SELFPAY ==
[2023-11-15 14:20] VITALS: BP 119/68; PULSE 85; RESP 16; TEMP 36.7; O2SAT 95; BMI 23.8
[2023-11-15] MEDS: Ensure Plus High Protein 120 ML LIQUID PO (16:50)
[2023-11-15] MEDS: Magnesium Citrate 300 ML PO (17:44)
--- NOTE | 2023-11-15 19:32 | PCM.HP.STD ---
HPI - General General Date of Admission: 11/15/23 Date of Service: 11/15/23 Chief Complaint: Here for rehabilitation. HPI Narrative 11/11/2023 BJORN ARTEAGA, is a 78 Male who presents to [facility] ED with fall. Fall 3 nights ago, hurt right ribs, right shoulder. X-ray right shoulder negative. X-ray shows right rib fracture. CT shows 3 rib fractures, right scapula fracture. [place], Percocet given, pain improved. RUE sling. Discharge home. 11/12/2023 [facility] ED. Unable to care for self 2/2 right rib fractures x 3, right scapula fracture. Admit for placement. 11/12/[address] [facility]. Tylenol, Oxycocone, PT/OT right scapula fracture, right rib fracture. PT/OT for falls, debility. Hold Lisinopril for orthostasis. Suspect underlying dementia, monitor for delirium. 11/13/2023 Right sided chest pain. PT/OT for SNF. 11/14/2023 Doing well, pain controlled. PT/OT SNF. Propranolol for tremors held 2/2 falls. 11/15/2023 Admit to TCU with debility, here for rehabilitation, strengthening, prior to discharge home with . [facility] Medical History (Updated 11/15/23 @ 19:[address] Leonard Dow MD) Arthritis BCC (basal cell carcinoma of skin) Change in mole Hypertension Skin lesion Home Medications lisinopril 20 mg tablet 1 tab PO DAILY BLOOD PRESSURE 02/28/20 [History Last Taken Unknown] B6 0.85 mg-folic 200 [id number]-[id number] oral chewable tablet (Neuriva Plus) 1 tab PO DAILY SUPPLEMENT 02/15/23 [History Last Taken 11/11/23] Vitamin D DAILY supplement 11/12/23 [History Last Taken Unknown] cyanocobalamin (vitamin B-12) 250 mcg tablet (Vitamin B-12) 250 mcg PO DAILY supplement 11/12/23 [History Last Taken 11/11/23] magnesium 200 mg tablet 200 mg PO DAILY supplement 11/12/23 [History Last Taken 11/11/23] oxycodone 5 mg tablet 5 mg PO Q4H PRN PRN PAIN SCORE 4-10/10 3 days #10 tabs 11/15/23 [Rx Last Taken Unknown] Allergy/AdvReac Type Severity Reaction Status Date / Time No Known Allergies Allergy Verified 11/12/23 09:36 Family History Brother Cancer Father Heart disease Surgical History Status post hip replacement Social History (Updated 11/15/23 @ 19:[address] Leonard Dwo MD) household members: spouse Smoking Status: Never smoker alcohol intake: never substance use type: does not use ROS Constitutional Constitutional: Denies chills, fever(s) or weight gain ENT HEENT: Denies headache(s), nasal congestion or nasal discharge Cardiovascular Cardiovascular: Denies chest pain or palpitations Respiratory/Chest Respiratory/Chest: Denies cough, excessive phlegm production or shortness of breath with exertion Gastrointestinal Gastrointestinal: Denies abdominal pain, nausea or vomiting Genitourinary Genitourinary: Denies dysuria Musculoskeletal Musculoskeletal: Denies joint pain or joint swelling Integumentary Integumentary: Denies rash or wounds Neurologic Neurologic: Denies focal weakness, numbness or tingling Psychiatric Psychiatric: Denies anxiety, auditory hallucinations, depression, homicidal ideation or suicidal ideation Vital Signs Vital Signs Vital Signs: 11/15/23 14:20 11/15/23 14:20 Temperature 98.0 F Temperature Source Temporal Pulse Rate 85 85 Pulse Rhythm Regular Pulse Strength Normal (2+) Respiratory Rate 16 16 Respiratory Effort Normal Non-Labored Respiratory Depth Normal Respiratory Pattern Normal Blood Pressure 119/68 Blood Pressure Mean 85 Blood Pressure Source Monitor Blood Pressure Position Semi-Fowlers Blood Pressure Location Left Arm Pulse Ox 95 95 Oxygen Delivery Method Room Air Room Air Weight Weight: 77.196 kg Body Mass Index (BMI) 23.8 Physical Exam Const alert General Appearance: cooperative HEENT normocephalic Eyes PERRL and EOMs intact bilaterally Neck supple, no JVD and no carotid bruits Resp normal respiratory effort, normal air movement and clear to auscultation bilaterally Cardio regular rate and regular rhythm GI normal to inspection, nondistended, normoactive bowel sounds, non-tender and non-distended Extremity normal capillary refill General Extremity: Negative for edema Skin no rashes or lesions noted General Skin Exam: no breakdown Psych affect normal Appearance: appropriate Assessment & Plan Assessment/Plan (1) Debility: (2) Fall: (3) Multiple fractures of ribs of right side: (4) Closed fracture of right scapula: (5) Hypertension: (6) Tremor: PLAN: Plan 78 year old male with below past medical history hospitalized for fall, right rib fractures x 3, right scapula fracture, admitted to TCU with debility, here for rehabilitation, strengthening, prior to discharge home with . Debility - PT/OT. Pain - Tylenol 1000mg q8, Tramadol 50mg q6 prn pain (1-5), Oxycodone 5mg q4 prn pain (6-10). Bowel - senna/colace 2 tablets bid, Magnesium citrate 300ml po x 1 dose, then daily prn. Adult immunization - Administer pneumonia vaccine, covid vaccine, flu vaccine as appropriate. DVT prophylaxis - Lovenox 40mg sc daily. Vitamin D deficiency - D3 25mcg daily. Vitamin B12 deficiency - B12 250mcg daily. Nutrition - Ensure Plus 120ml tidcm. Hypertension - Lisinopril 20mg daily. Hypomagnesemia - Magnesium chloride 64mg daily.
[2023-11-15] MEDS: Senna/Docusate Sodium 1 Tablet 2 TABLET PO (20:32)
[2023-11-15] MEDS: Acetaminophen 500 MG Tablet 1000 MG PO (20:32)
[2023-11-16] MEDS: traMADol 50 MG Tablet PO (05:23)
[2023-11-16] MEDS: Acetaminophen 500 MG Tablet 1000 MG PO ×3 (05:24→21:00)
[2023-11-16] MEDS: Enoxaparin 40 MG/0.4 ML Syringe SC (05:24)
[2023-11-16 05:32] VITALS: PULSE 70; RESP 16; O2SAT 94
[2023-11-16 05:54] LABS: Absolute Lymphocyte Count 1.92 X10^3/uL (0.83-4.51); Absolute Neutrophil Count 5.5 X10^3/uL (2.0-7.7); Basophil# 0.03 X10^3/uL; Basophil% 0.4 % (0-1); Eosinophils% 3.5 % (0-5); Hemoglobin 12.1 g/dL (13.0-16.5); Lymphocyte # 1.92 X10^3/ul (0.83-4.51); Lymphocyte % 22.6 % (19-41); Mean Corp Hgb Conc 31.8 g/dL (32-36); Mean Corpuscular Hgb 30.4 pg (27.0-32.0); Mean Corpuscular Volume 95.5 fL (80-94); Mean Platelet Vol. 10.2 fl (6.2-12.0); Monocyte# 0.75 X10^3/uL; Monocyte% 8.8 % (0-10); NRBC Flagged by Analyzer 0 % (0-5); Neutrophil # 5.47 X10^3/uL (2.7-7.7); Neutrophil % 64.5 % (47-70); Platelet Count 174 K/mm3 (150-450); RBC Distribution Width CV 12.8 % (11.6-14.6); RBC Distribution Width SD 44.4 fl (35.1-43.9); Red Blood Count 3.98 M/mm3 (4.6-6.2); White Blood Count 8.5 K/mm3 (4.4-11.0)
[2023-11-16] MEDS: Ensure Plus High Protein 120 ML LIQUID PO ×3 (08:12→17:10)
[2023-11-16] MEDS: Magnesium Chloride 64 MG Delay Rel.Tablet PO (08:15)
[2023-11-16] MEDS: Cyanocobalamin 500 MCG Tablet 250 MCG PO (08:16)
[2023-11-16] MEDS: Senna/Docusate Sodium 1 Tablet 2 TABLET PO (08:16)
[2023-11-16] MEDS: Cholecalciferol (VIT D3) 25 MCG TABLET (1,000 UNITS) PO (08:18)
--- NOTE | 2023-11-16 08:27 | NURSING ---
SON CALLED, THIS NURSE CALLED SON BACK. SON STATED HE NOTICED [facility] YESTERDAY ON HIS DADS BACK AND WANTED US TO KNOW. THIS NURSE STATED IT WAS DOCUMENTED IN ASSESSMENT THEY WERE THERE. SON ALSO STATED THAT HIS DAD HAS A JESSE BUTT AND HURTS HIM TIME TO TIME AND PROBABLY NEEDS SOME THING FOR THAT AND THAT HIS DAD CAN BE PLEASANTLY STUBBORN AT TIMES AND FRUSTRATED WITH WHAT HAPPENED. THIS NURSE STATED TO SON WE WILL KEEP AN EYE ON EVERY THING AND THANKED HIM FOR UPDATING US. SON STATED HE DIDNT WANT TO BOTHER US. STATED TO SON THAT AT ANY TIME HE CAN CALL US IF HE HAS QUESTIONS OR CONCERNS OR TO JUST SEE HOW HIS DAD IS DOING. SON THANKED THIS NURSE.
[2023-11-16 08:38] LABS: Anion Gap 2 (5-15); BUN 26 mg/dL (7-18); BUN/Creat Ratio 27.3 RATIO (10-20); Chloride 107 mmol/L (98-107); Creatinine, Serum 0.95 mg/dL (0.70-1.30); EST Glomerular Filtration Rate 81 mL/min (>60); Est Glom Filt Rate - Afr Amer 98 mL/min (>60); Estimated Creatinine Clearance 64.04 ml/min; Glucose 108 mg/dL (74-106); Potassium 4.2 mmol/L (3.5-5.1); Sodium Level 143 mmol/L (136-145)
[2023-11-16 09:24] VITALS: BP 141/71; PULSE 70
[2023-11-16 10:23] VITALS: BP 144/72; PULSE 70
[2023-11-16] MEDS: Tuberculin,Purif.prot.deriv. 50 TU/ML Vial 0.1 ML ID (10:32)
--- NOTE | 2023-11-16 10:42 | PCM.PN.DRR ---
Documented by User: Darleen Kemp 11/16/23 10:53 TCU RX Drug Regimen Review Subjective/Objective Subjective/Objective: Subjective: TCU Admission. 78 YOM presented to the ER with a fall. Hospitalized for fall, right rib fractures x 3, right scapula fracture. Admitted to TCU with debility for strengthening and rehabilitation. Objective: Allergies No Known Allergies Allergy (Verified 11/12/23 09:36) Current Medications Generic Name Dose Route Start Last Admin Trade Name Freq PRN Reason Stop Dose Admin Acetaminophen 1,000 mg 11/15/23 22:00 11/16/23 05:24 Acetaminophen 500 Mg Tablet PO 1,000 mg Q8 BETHEL Administration Cholecalciferol 25 mcg 11/16/23 10:00 11/16/23 08:18 Cholecalciferol (Vit D3) 25 Mcg Tablet (1,000 Units) PO 25 mcg DAILY BETHEL Administration Cyanocobalamin 250 mcg 11/16/23 10:00 11/16/23 08:16 Cyanocobalamin 500 Mcg Tablet PO 250 mcg DAILY BETHEL Administration Enoxaparin Sodium 40 mg 11/16/23 06:00 11/16/23 05:24 Enoxaparin 40 Mg/0.4 Ml Syringe SC 40 mg DAILY@0600 BETHEL Administration Lisinopril 20 mg 11/16/23 10:00 11/16/23 10:12 Lisinopril 20 Mg Tablet PO Not Given DAILY [facility] Protocol Magnesium Chloride 64 mg 11/16/23 10:00 11/16/23 08:15 Magnesium Chloride 64 Mg Delay Rel.Tablet PO 64 mg DAILY BETHEL Administration Magnesium Citrate 300 ml 11/15/23 19:43 Magnesium Citrate 300 Ml PO DAILY PRN Constipation Nutritional Formula (Lactose Free) 120 ml 11/15/23 17:45 11/16/23 08:12 Ensure Plus High Protein 120 Ml Liquid PO 120 ml TIDCM BETHEL Administration Oxycodone HCl 5 mg 11/15/23 19:45 Oxycodone 5 Mg Tablet PO Q4H PRN PRN Pain Score 6-10 Senna/Docusate Sodium 2 tablet 11/15/23 22:00 11/16/23 08:16 Senna/Docusate Sodium 1 Tablet PO 2 tablet BID BETHEL Administration Sodium Chloride 10 - 40 ml 11/15/23 14:24 0.9% Saline Lock 10 Ml Syringe IV UD PRN SALINE FLUSH Tramadol HCl 50 mg 11/15/23 19:43 11/16/23 05:23 Tramadol 50 Mg Tablet PO 50 mg Q6H PRN PRN Administration Pain Score 1-5 Tuberculin PPD 0.1 ml 11/23/23 10:00 Tuberculin,Purif.Prot.Deriv. 50 Tu/Ml Vial ID 11/23/23 10:01 X1 ONE Problem List (Updated 11/15/23 @ 19:[address] Leonard Dow MD) Tremor (Acute) Hypertension (Chronic) Debility (Acute) Multiple fractures of ribs of right side (Acute) Closed fracture of right scapula (Acute) Vital Signs Temp Pulse Resp BP Pulse Ox O2 Del Method 98.0 F 70 16 144/72 H 94 Room Air 11/15/23 14:20 11/16/23 10:23 11/16/23 05:32 11/16/23 10:23 11/16/23 05:32 11/16/23 05:32 Oxygen Delivery Method Room Air Weight: 77.196 kg Body Mass Index (BMI) 23.8 Sodium 143 mmol/L (136-145) 11/16/23 05:16 Potassium 4.2 mmol/L (3.5-5.1) 11/16/23 05:16 Chloride 107 mmol/L (98-107) 11/16/23 05:16 Carbon Dioxide 34.0 mmol/L (21.0-32.0) H 11/16/23 05:16 Anion Gap 2 (5-15) L 11/16/23 05:16 BUN 26 mg/dL (7-18) H 11/16/23 05:16 Creatinine 0.95 mg/dL (0.70-1.30) 11/16/23 05:16 Est GFR (MDRD) Af Amer 98 mL/min (>60) 11/16/23 05:16 Est GFR (MDRD) Non-Af 81 mL/min (>60) 11/16/23 05:16 BUN/Creatinine Ratio 27.3 RATIO (10-20) H 11/16/23 05:16 Glucose 108 mg/dL (74-106) H 11/16/23 05:16 Assessment/Plan: 1. Pain: acetaminophen 1000mg PO Q8, tramadol 50mg PO Q6H PRN pain 1-5 and oxycodone 5mg PO Q4H PRN pain 6-10. Resident has had 1 dose of tramadol for pain of 4 in the shoulder/rib and no doses of oxycodone. Please continue to monitor for increased pain, PRN usage, constipation, renal function and respiratory depression. 2. Bowel: senna/docusate 2T PO BID and magnesium citrate 300mL PO daily constipation (did receive a x1 dose 11/14). Resident has not had any PRN doses of magnesium citrate. No documented bowel movements at this time. Please continue to monitor for constipation, diarrhea and PRN usage. 3. DVT prophylaxis: enoxaparin 40mg SC daily. Please continue to monitor for S/S of bleeding/DVT, hemoglobin (last 12.1g/dL), renal function and platelets (last 174,000). 4. Hypertension: lisinopril 20mg PO daily. Please continue to monitor BP (last 144/72), potassium (last 4.2mmol/L), cough and renal function (last SCr 0.95mg/dL). 5. Hypomagnesemia: magnesium chloride 64mg PO daily. Please continue to monitor magnesium levels (last 2.4mg/dL). 6. Vitamin D/B12 deficiencies: cholecalciferol 25mcg PO daily and cyanocobalamin 250mcg PO daily. Please consider ordering a vitamin D and a vitamin B12 level as there are no levels in the chart. Thanks. Assessment/Plan for indications treated with psychotropic medications: None Medical chart and medication regimen reviewed. The following medication irregularities or issues were identified: 1. Cholecalciferol 25mcg PO daily and cyanocobalamin 250mcg PO daily. Please consider ordering a vitamin D and a vitamin B12 level as there are no levels in the chart. Thanks. Date Date of Note:: 11/16/23 Documented by User: Dr. Leonard Dow MD 11/16/23 13:05 TCU RX Drug Regimen Review Provider Comments Provider responsibility Provider Comments to Recommendations by Pharmacy: Agree
--- NOTE | 2023-11-16 10:42 | NURSING ---
code status verified with pt. Pt wishes to be FULL CODE, witnessed by RN HEMODIALYSIS.
--- NOTE | 2023-11-16 10:44 | NURSING ---
Addendum entered by Facundo Muñiz 11/16/23 13:36: Prune juice was effective, large BM results. Original Note: Pt. asked about BM's, No BM x6 days. Pt. offered PRN Mag Citrate, Pt. requested prune juice, will monitor.
[2023-11-16] MEDS: 0.9% Saline Lock 10 ML Syringe IV (11:28)
--- NOTE | 2023-11-16 12:17 | NURSING ---
Public Relations Senior Associate Note; Activity Asset: Izabella Beasley is independent in his choice of daily activities with reminder of what is on the calendar. He prefers to be called Florentin. Florentin will watch tv, read and has word puzzles he can work on. He did state he welcomes visit from the truck driver and therapy dog when available. His family will visit when able, his just had surgery. Staff will remind him of weekly activities and respect his right to say no.
--- NOTE | 2023-11-16 14:54 | CHAPLAIN ---
Type of Pastoral Visit _x__ Initial Visit ___ Follow-up Visit ___ On-call Visit ___ General Patient Visit ___ Spiritual Assessment ___ Family Conference ___ Bereavement ___ Rapid Response ___ Code Blue ___ Other (describe below) Pastoral Care Referral From _x__ Patient ___ Family ___ Nurse ___ Physician ___ Furnace And Wash Equipment Operator ___ Manager Lvn ___ Other (describe below) Sacrament/Intervention _x__ Active listening ___ Anointing ___ Bahai ___ Bereavement ___ Communion ___ Carina exploration ___ _x__ Life review _x__ Prayer ___ Reconciliation ___ Sacrament of Sick _x__ Supportive presence ___ Wedding ___ Other (describe below) Pastoral Comments patient had just finished therpy; pt is given time to express his thoughts and feelings; pt states that he is doing okay but would much rather go home; pt gives some life review after open ended questions; pt was pretty normal with patients as [employer] SUPER[employer] reports normally; prayer is accepted but pt does not go to [facility]
--- NOTE | 2023-11-16 14:55 | CASEMGMT ---
Social Work Met with pt to complete initial assessment. Introduced self and role. Verified pt. contacts. Patient confirmed code status as full code. Pt wasn't sure if he has DPOAHC or Living Will. This worker telephoned patient's and she confirmed he does have these documents in place and she is DPOAHC. stated she will bring in copies of forms to be scanned into chart. Educated to Medicare benfit and copay coverage. Pt does have secondary insurance. Pt's goal is to return home with spouse. Spouse recently had hernia surgery and would not be able to help much physically. SW will continue to follow for DC planning. GRACIA Rodriguez
[2023-11-16 15:35] VITALS: BP 128/75; PULSE 110; RESP 16; TEMP 36.4; O2SAT 95
[2023-11-16 17:15] VITALS: PULSE 75
[2023-11-17] MEDS: Acetaminophen 500 MG Tablet 1000 MG PO ×3 (05:16→21:50)
[2023-11-17] MEDS: Enoxaparin 40 MG/0.4 ML Syringe SC (05:16)
[2023-11-17 07:13] VITALS: RESP 18
[2023-11-17 08:25] LABS: Vitamin B12 432 pg/mL (211-911); Vitamin D,25 Hydroxy 36.2 ng/mL
[2023-11-17] MEDS: Magnesium Chloride 64 MG Delay Rel.Tablet PO (08:38)
[2023-11-17] MEDS: Senna/Docusate Sodium 1 Tablet 2 TABLET PO (08:38)
[2023-11-17] MEDS: Ensure Plus High Protein 120 ML LIQUID PO ×3 (08:38→17:43)
[2023-11-17] MEDS: Cyanocobalamin 500 MCG Tablet 250 MCG PO (08:38)
[2023-11-17] MEDS: Cholecalciferol (VIT D3) 25 MCG TABLET (1,000 UNITS) PO (08:39)
[2023-11-17 14:51] VITALS: BP 127/70; PULSE 79; RESP 17; TEMP 36.2; O2SAT 100
[2023-11-18] MEDS: Enoxaparin 40 MG/0.4 ML Syringe SC (05:55)
[2023-11-18] MEDS: Acetaminophen 500 MG Tablet 1000 MG PO ×3 (05:56→20:37)
[2023-11-18] MEDS: Ensure Plus High Protein 120 ML LIQUID PO ×3 (08:06→16:59)
[2023-11-18] MEDS: Magnesium Chloride 64 MG Delay Rel.Tablet PO (08:07)
[2023-11-18] MEDS: Senna/Docusate Sodium 1 Tablet 2 TABLET PO ×2 (08:07→20:37)
[2023-11-18] MEDS: Cyanocobalamin 500 MCG Tablet 250 MCG PO (08:08)
[2023-11-18] MEDS: Cholecalciferol (VIT D3) 25 MCG TABLET (1,000 UNITS) PO (08:09)
[2023-11-18] MEDS: Lisinopril 20 MG Tablet PO (08:10)
[2023-11-18] MEDS: 0.9% Saline Lock 10 ML Syringe IV (08:14)
[2023-11-18 09:31] VITALS: BP 148/75; PULSE 72
[2023-11-18 12:36] VITALS: BP 130/72; PULSE 68; RESP 16; TEMP 36.6; O2SAT 98
[2023-11-19] MEDS: Enoxaparin 40 MG/0.4 ML Syringe SC (05:30)
[2023-11-19] MEDS: Acetaminophen 500 MG Tablet 1000 MG PO ×3 (05:30→21:35)
[2023-11-19] MEDS: Magnesium Chloride 64 MG Delay Rel.Tablet PO (07:53)
[2023-11-19] MEDS: Cyanocobalamin 500 MCG Tablet 250 MCG PO (07:53)
[2023-11-19] MEDS: Senna/Docusate Sodium 1 Tablet 2 TABLET PO ×2 (07:53→21:35)
[2023-11-19] MEDS: Lisinopril 20 MG Tablet PO (07:53)
[2023-11-19] MEDS: Ensure Plus High Protein 120 ML LIQUID PO ×3 (07:53→17:59)
[2023-11-19] MEDS: Cholecalciferol (VIT D3) 25 MCG TABLET (1,000 UNITS) PO (07:53)
[2023-11-19 16:00] VITALS: BP 136/55; PULSE 82; RESP 16; TEMP 36.3; O2SAT 97
[2023-11-20] MEDS: Acetaminophen 500 MG Tablet 1000 MG PO ×3 (05:17→20:54)
[2023-11-20] MEDS: Enoxaparin 40 MG/0.4 ML Syringe SC (05:17)
[2023-11-20] MEDS: Ensure Plus High Protein 120 ML LIQUID PO ×3 (08:19→17:37)
[2023-11-20] MEDS: Senna/Docusate Sodium 1 Tablet 2 TABLET PO (08:19)
[2023-11-20] MEDS: Cyanocobalamin 500 MCG Tablet 250 MCG PO (08:19)
[2023-11-20] MEDS: Magnesium Chloride 64 MG Delay Rel.Tablet PO (08:19)
[2023-11-20] MEDS: Cholecalciferol (VIT D3) 25 MCG TABLET (1,000 UNITS) PO (08:20)
[2023-11-20] MEDS: Lisinopril 20 MG Tablet PO (08:20)
[2023-11-20 13:49] VITALS: BP 110/66; PULSE 82; RESP 14; TEMP 36.6; O2SAT 96
[2023-11-21] MEDS: Ensure Plus High Protein 120 ML LIQUID PO ×3 (06:06→17:15)
[2023-11-21] MEDS: Acetaminophen 500 MG Tablet 1000 MG PO ×3 (06:06→21:26)
[2023-11-21] MEDS: Enoxaparin 40 MG/0.4 ML Syringe SC (06:06)
[2023-11-21] MEDS: Magnesium Chloride 64 MG Delay Rel.Tablet PO (08:44)
[2023-11-21] MEDS: Hydrocortisone 2.5% Crm 1 APPLIC TOPICAL ×2 (08:44→21:33)
[2023-11-21] MEDS: Cholecalciferol (VIT D3) 25 MCG TABLET (1,000 UNITS) PO (08:45)
[2023-11-21] MEDS: Lisinopril 20 MG Tablet PO (08:45)
[2023-11-21] MEDS: Cyanocobalamin 500 MCG Tablet 250 MCG PO (08:45)
[2023-11-21 08:49] VITALS: BP 133/70; PULSE 75
--- NOTE | 2023-11-21 13:01 | NURSING ---
Offered covid vaccine, VIS provided. Patient refuses at this time.
[2023-11-21 13:02] VITALS: BP 112/62; PULSE 72; RESP 16; TEMP 36.5; O2SAT 98
[2023-11-21] MEDS: Senna/Docusate Sodium 1 Tablet 2 TABLET PO (21:26)
[2023-11-22] MEDS: Acetaminophen 500 MG Tablet 1000 MG PO ×3 (05:19→21:11)
[2023-11-22] MEDS: Enoxaparin 40 MG/0.4 ML Syringe SC (05:19)
[2023-11-22] MEDS: Cyanocobalamin 500 MCG Tablet 250 MCG PO (07:54)
[2023-11-22] MEDS: Senna/Docusate Sodium 1 Tablet 2 TABLET PO ×2 (07:54→21:11)
[2023-11-22] MEDS: Magnesium Chloride 64 MG Delay Rel.Tablet PO (07:54)
[2023-11-22] MEDS: Ensure Plus High Protein 120 ML LIQUID PO ×3 (07:54→17:41)
[2023-11-22] MEDS: Hydrocortisone 2.5% Crm 1 APPLIC TOPICAL (07:55)
[2023-11-22] MEDS: Cholecalciferol (VIT D3) 25 MCG TABLET (1,000 UNITS) PO (07:55)
[2023-11-22] MEDS: Lisinopril 20 MG Tablet PO (07:55)
[2023-11-22 09:57] VITALS: BMI 24.5
--- NOTE | 2023-11-22 13:10 | CASEMGMT ---
Social Work MDS interviews completed. BIMS Mood 08/23. Pt did state he has felt hopeless and lonely since being admitted to hospital and that he misses his . SW provided support.
[2023-11-22 13:27] VITALS: BP 107/63; PULSE 82; RESP 14; TEMP 36.4; O2SAT 97
[2023-11-23 05:54] LABS: Absolute Lymphocyte Count 1.94 X10^3/uL (0.83-4.51); Absolute Neutrophil Count 5.6 X10^3/uL (2.0-7.7); Basophil# 0.05 X10^3/uL; Basophil% 0.6 % (0-1); Eosinophil# 0.37 X10^3/uL; Eosinophils% 4.2 % (0-5); Hematocrit 32.2 % (40-54); Hemoglobin 10.2 g/dL (13.0-16.5); Lymphocyte # 1.94 X10^3/ul (0.83-4.51); Lymphocyte % 21.9 % (19-41); Mean Corp Hgb Conc 31.7 g/dL (32-36); Mean Corpuscular Hgb 30.2 pg (27.0-32.0); Mean Corpuscular Volume 95.3 fL (80-94); Mean Platelet Vol. 10.4 fl (6.2-12.0); Monocyte# 0.87 X10^3/uL; Monocyte% 9.8 % (0-10); NRBC Flagged by Analyzer 0 % (0-5); Neutrophil # 5.57 X10^3/uL (2.7-7.7); Neutrophil % 62.7 % (47-70); Platelet Count 218 K/mm3 (150-450); RBC Distribution Width CV 13.5 % (11.6-14.6); RBC Distribution Width SD 46.4 fl (35.1-43.9); Red Blood Count 3.38 M/mm3 (4.6-6.2); White Blood Count 8.9 K/mm3 (4.4-11.0)
[2023-11-23] MEDS: Acetaminophen 500 MG Tablet 1000 MG PO ×3 (06:06→22:00)
[2023-11-23] MEDS: Enoxaparin 40 MG/0.4 ML Syringe SC (06:06)
[2023-11-23 06:19] LABS: Anion Gap 2 (5-15); BUN 31 mg/dL (7-18); BUN/Creat Ratio 30.4 RATIO (10-20); Calcium,Total 8.7 mg/dL (8.5-10.1); Chloride 109 mmol/L (98-107); Creatinine, Serum 1.02 mg/dL (0.70-1.30); EST Glomerular Filtration Rate 75 mL/min (>60); Est Glom Filt Rate - Afr Amer 90 mL/min (>60); Estimated Creatinine Clearance 59.64 ml/min; Glucose 92 mg/dL (74-106); Potassium 4.4 mmol/L (3.5-5.1); Sodium Level 142 mmol/L (136-145)
--- NOTE | 2023-11-23 08:44 | NURSING ---
Waist Fitter Note; MDS for 11/22/2023 Complete
[2023-11-23] MEDS: Senna/Docusate Sodium 1 Tablet 2 TABLET PO ×2 (10:18→22:00)
[2023-11-23] MEDS: Magnesium Chloride 64 MG Delay Rel.Tablet PO (10:18)
[2023-11-23] MEDS: Cholecalciferol (VIT D3) 25 MCG TABLET (1,000 UNITS) PO (10:18)
[2023-11-23] MEDS: Tuberculin,Purif.prot.deriv. 50 TU/ML Vial 0.1 ML ID (10:19)
[2023-11-23] MEDS: Cyanocobalamin 500 MCG Tablet 250 MCG PO (10:19)
[2023-11-23] MEDS: Lisinopril 20 MG Tablet PO (10:19)
[2023-11-23] MEDS: Ensure Plus High Protein 120 ML LIQUID PO (10:19)
[2023-11-23 10:26] VITALS: BP 118/67; PULSE 80
--- NOTE | 2023-11-23 11:05 | CASEMGMT ---
Social Work IDT met with patient and for care plan meeting. Discusses patient's progress in PT/OT/ST/SN. Educated to [employer] benefits. Pt is progressing well and no concerns noted. Goal is to return home with . Discussed home health options & DME needs. requested [facility] HH services. Pt might need wheeled walker. stated they do have a shower on the 1st floor that has a bench. SW will assist with DC planning and continue to follow. Deana Gonzales NEUROSURGICAL NURSE
[2023-11-23 16:00] VITALS: BP 116/65; PULSE 74; RESP 16; TEMP 36.4; O2SAT 95
[2023-11-23 20:45] VITALS: PULSE 78; RESP 18; O2SAT 97
[2023-11-23] MEDS: Hydrocortisone 2.5% Crm 1 APPLIC TOPICAL (22:00)
[2023-11-24] MEDS: Acetaminophen 500 MG Tablet 1000 MG PO ×3 (05:19→19:45)
[2023-11-24] MEDS: Enoxaparin 40 MG/0.4 ML Syringe SC (05:19)
[2023-11-24 05:46] LABS: Hematocrit 33.3 % (40-54); Hemoglobin 10.7 g/dL (13.0-16.5)
[2023-11-24] MEDS: Lisinopril 20 MG Tablet PO (09:58)
[2023-11-24] MEDS: Cholecalciferol (VIT D3) 25 MCG TABLET (1,000 UNITS) PO (09:58)
[2023-11-24] MEDS: Magnesium Chloride 64 MG Delay Rel.Tablet PO (09:59)
[2023-11-24] MEDS: Senna/Docusate Sodium 1 Tablet 2 TABLET PO ×2 (09:59→19:45)
[2023-11-24] MEDS: Cyanocobalamin 500 MCG Tablet 250 MCG PO (10:01)
[2023-11-24 10:04] VITALS: BP 133/66; PULSE 85
[2023-11-24 10:05] VITALS: PULSE 87; RESP 18; O2SAT 96
[2023-11-24 13:34] VITALS: BP 119/56; PULSE 81; RESP 17; TEMP 36.6; O2SAT 94
[2023-11-25] MEDS: Acetaminophen 500 MG Tablet 1000 MG PO ×3 (05:16→20:47)
[2023-11-25] MEDS: Enoxaparin 40 MG/0.4 ML Syringe SC (05:16)
[2023-11-25] MEDS: Cyanocobalamin 500 MCG Tablet 250 MCG PO (08:16)
[2023-11-25] MEDS: Senna/Docusate Sodium 1 Tablet 2 TABLET PO (08:16)
[2023-11-25] MEDS: Lisinopril 20 MG Tablet PO (08:16)
[2023-11-25] MEDS: Cholecalciferol (VIT D3) 25 MCG TABLET (1,000 UNITS) PO (08:16)
[2023-11-25] MEDS: Magnesium Chloride 64 MG Delay Rel.Tablet PO (08:16)
[2023-11-25 08:55] VITALS: BP 134/66; PULSE 68
--- NOTE | 2023-11-25 12:22 | MDS.RN ---
Information for the mds was obtained from review of the clinical record, interview of resident, staff, and direct observation of resident's care.
[2023-11-25 16:00] VITALS: BP 126/66; PULSE 70; RESP 22; TEMP 36.4; O2SAT 97
[2023-11-26] MEDS: Enoxaparin 40 MG/0.4 ML Syringe SC (05:51)
[2023-11-26] MEDS: Acetaminophen 500 MG Tablet 1000 MG PO ×3 (05:51→21:01)
[2023-11-26] MEDS: Cholecalciferol (VIT D3) 25 MCG TABLET (1,000 UNITS) PO (08:30)
[2023-11-26] MEDS: Lisinopril 20 MG Tablet PO (08:31)
[2023-11-26] MEDS: Magnesium Chloride 64 MG Delay Rel.Tablet PO (08:31)
[2023-11-26] MEDS: Cyanocobalamin 500 MCG Tablet 250 MCG PO (08:31)
[2023-11-26] MEDS: Hydrocortisone 2.5% Crm 1 APPLIC TOPICAL (08:32)
[2023-11-26 10:00] VITALS: PULSE 66; RESP 14; O2SAT 98
[2023-11-26 15:05] VITALS: BP 145/73; PULSE 66; RESP 12; TEMP 36.9; O2SAT 99
[2023-11-26] MEDS: Senna/Docusate Sodium 1 Tablet 2 TABLET PO (21:01)
[2023-11-27] MEDS: Acetaminophen 500 MG Tablet 1000 MG PO ×3 (05:14→22:08)
[2023-11-27] MEDS: Enoxaparin 40 MG/0.4 ML Syringe SC (05:14)
[2023-11-27] MEDS: Hydrocortisone 2.5% Crm 1 APPLIC TOPICAL ×2 (08:45→22:08)
[2023-11-27] MEDS: Magnesium Chloride 64 MG Delay Rel.Tablet PO (08:46)
[2023-11-27] MEDS: Cholecalciferol (VIT D3) 25 MCG TABLET (1,000 UNITS) PO (08:46)
[2023-11-27] MEDS: Senna/Docusate Sodium 1 Tablet 2 TABLET PO ×2 (08:46→22:08)
[2023-11-27] MEDS: Cyanocobalamin 500 MCG Tablet 250 MCG PO (08:46)
[2023-11-27] MEDS: Lisinopril 20 MG Tablet PO (08:47)
[2023-11-27 16:00] VITALS: BP 144/64; PULSE 67; RESP 14; TEMP 36.8; O2SAT 99
[2023-11-27 20:30] VITALS: PULSE 74; O2SAT 96
[2023-11-28] MEDS: Acetaminophen 500 MG Tablet 1000 MG PO ×3 (05:14→20:09)
[2023-11-28 05:15] VITALS: PULSE 60; O2SAT 96
[2023-11-28] MEDS: Enoxaparin 40 MG/0.4 ML Syringe SC (05:15)
[2023-11-28] MEDS: Hydrocortisone 2.5% Crm 1 APPLIC TOPICAL (08:40)
[2023-11-28] MEDS: Senna/Docusate Sodium 1 Tablet 2 TABLET PO ×2 (08:40→20:09)
[2023-11-28] MEDS: Magnesium Chloride 64 MG Delay Rel.Tablet PO (08:40)
[2023-11-28] MEDS: Lisinopril 20 MG Tablet PO (08:41)
[2023-11-28] MEDS: Cholecalciferol (VIT D3) 25 MCG TABLET (1,000 UNITS) PO (08:41)
[2023-11-28] MEDS: Cyanocobalamin 500 MCG Tablet 250 MCG PO (08:41)
[2023-11-28 16:00] VITALS: BP 136/62; PULSE 78; RESP 14; TEMP 36.1; O2SAT 94
--- NOTE | 2023-11-28 16:45 | CASEMGMT ---
Social Work SW met with patient at bedside to assess for needs. Patient denied any concerns. SW inquired about home DME. Patient informed SW that he has a walker, but was unsure . Patient requested that SW follow up with , Charlene regarding DME. SW spoke with patient's via phone to discuss supportive DME. Patient's informed SW that the patient previously had a walker, but discarded equipment. The patient's inquired whether the patient required a walker. SW informed patient's that SW will discuss recommendations for DME with therapy to determine. Patient goal is to return home with . SW will continue to follow to support transition in care planning. WILLIAMS Silver
[2023-11-29] MEDS: Enoxaparin 40 MG/0.4 ML Syringe SC (05:20)
[2023-11-29] MEDS: Acetaminophen 500 MG Tablet 1000 MG PO ×3 (05:20→20:40)
[2023-11-29] MEDS: Lisinopril 20 MG Tablet PO (08:00)
[2023-11-29] MEDS: Cholecalciferol (VIT D3) 25 MCG TABLET (1,000 UNITS) PO (08:00)
[2023-11-29] MEDS: Magnesium Chloride 64 MG Delay Rel.Tablet PO (08:00)
[2023-11-29] MEDS: Cyanocobalamin 500 MCG Tablet 250 MCG PO (08:00)
[2023-11-29] MEDS: Senna/Docusate Sodium 1 Tablet 2 TABLET PO ×2 (08:00→20:40)
[2023-11-29 14:00] VITALS: BMI 24.3
[2023-11-29 16:00] VITALS: BP 111/63; PULSE 72; RESP 16; TEMP 36.5; O2SAT 95
[2023-11-29 21:02] VITALS: PULSE 73; RESP 16; O2SAT 91
[2023-11-30] MEDS: Enoxaparin 40 MG/0.4 ML Syringe SC (04:54)
[2023-11-30] MEDS: Acetaminophen 500 MG Tablet 1000 MG PO ×3 (04:56→21:47)
[2023-11-30 05:57] LABS: Absolute Neutrophil Count 5.6 X10^3/uL (2.0-7.7); Basophil# 0.05 X10^3/uL; Basophil% 0.6 % (0-1); Eosinophil# 0.32 X10^3/uL; Eosinophils% 3.7 % (0-5); Hematocrit 35.8 % (40-54); Hemoglobin 11.4 g/dL (13.0-16.5); Lymphocyte % 21.1 % (19-41); Mean Corp Hgb Conc 31.8 g/dL (32-36); Mean Corpuscular Hgb 30.2 pg (27.0-32.0); Mean Platelet Vol. 10.5 fl (6.2-12.0); Monocyte# 0.69 X10^3/uL; Monocyte% 8.1 % (0-10); NRBC Flagged by Analyzer 0 % (0-5); Neutrophil # 5.64 X10^3/uL (2.7-7.7); Neutrophil % 65.9 % (47-70); Platelet Count 257 K/mm3 (150-450); RBC Distribution Width CV 13.5 % (11.6-14.6); Red Blood Count 3.77 M/mm3 (4.6-6.2); White Blood Count 8.6 K/mm3 (4.4-11.0)
[2023-11-30 06:15] LABS: Anion Gap 3 (5-15); BUN 27 mg/dL (7-18); BUN/Creat Ratio 24.5 RATIO (10-20); Calcium,Total 8.6 mg/dL (8.5-10.1); Chloride 107 mmol/L (98-107); EST Glomerular Filtration Rate 68 mL/min (>60); Est Glom Filt Rate - Afr Amer 83 mL/min (>60); Glucose 90 mg/dL (74-106); Potassium 4.2 mmol/L (3.5-5.1); Sodium Level 140 mmol/L (136-145)
[2023-11-30] MEDS: Senna/Docusate Sodium 1 Tablet 2 TABLET PO ×2 (09:22→21:46)
[2023-11-30] MEDS: Lisinopril 20 MG Tablet PO (09:22)
[2023-11-30] MEDS: Magnesium Chloride 64 MG Delay Rel.Tablet PO (09:22)
[2023-11-30] MEDS: Cholecalciferol (VIT D3) 25 MCG TABLET (1,000 UNITS) PO (09:22)
[2023-11-30] MEDS: Cyanocobalamin 500 MCG Tablet 250 MCG PO (09:23)
[2023-11-30 09:26] VITALS: BP 128/70; PULSE 69
[2023-11-30 13:50] VITALS: PULSE 71; RESP 18; O2SAT 97
[2023-11-30 16:00] VITALS: BP 103/63; PULSE 73; RESP 14; TEMP 36.5; O2SAT 99
[2023-11-30] MEDS: Menthol/Lanolin/Calamine/Znox 113 GM Tube 1 APPLIC TOPICAL (21:58)
[2023-12-01] MEDS: Acetaminophen 500 MG Tablet 1000 MG PO ×3 (05:13→21:16)
[2023-12-01] MEDS: Enoxaparin 40 MG/0.4 ML Syringe SC (05:13)
[2023-12-01] MEDS: Menthol/Lanolin/Calamine/Znox 113 GM Tube 1 APPLIC TOPICAL ×2 (09:49→21:14)
[2023-12-01] MEDS: Cyanocobalamin 500 MCG Tablet 250 MCG PO (09:50)
[2023-12-01] MEDS: Senna/Docusate Sodium 1 Tablet 2 TABLET PO ×2 (09:50→21:15)
[2023-12-01] MEDS: Magnesium Chloride 64 MG Delay Rel.Tablet PO (09:50)
[2023-12-01] MEDS: Cholecalciferol (VIT D3) 25 MCG TABLET (1,000 UNITS) PO (09:51)
[2023-12-01] MEDS: Lisinopril 20 MG Tablet PO (09:51)
[2023-12-01 09:55] VITALS: BP 113/57; PULSE 80
[2023-12-01 14:43] VITALS: BP 101/58; PULSE 82; RESP 14; TEMP 36.8; O2SAT 95
[2023-12-01 15:04] VITALS: BP 120/66
--- NOTE | 2023-12-01 15:05 | NURSING ---
THERAPY REPORTED TO THIS NURSE THAT SHE SEEN PT HAD A WOUND ON TOP OF LEFT HAND. THIS NURSE ASKED PT WHAT HAPPENED. PT STATED THAT HE HIT HIS HAND IN THERAPY ON THE CHAIR. SMALL SKIN TEAR WITH BRUISING. CLEANED AREA AND PLACED 1 SERI STRIP. RN AWARE
[2023-12-02] MEDS: Acetaminophen 500 MG Tablet 1000 MG PO ×3 (06:11→22:09)
[2023-12-02] MEDS: Enoxaparin 40 MG/0.4 ML Syringe SC (06:12)
[2023-12-02] MEDS: Menthol/Lanolin/Calamine/Znox 113 GM Tube 1 APPLIC TOPICAL ×2 (10:05→22:09)
[2023-12-02] MEDS: Cyanocobalamin 500 MCG Tablet 250 MCG PO (10:06)
[2023-12-02] MEDS: Lisinopril 20 MG Tablet PO (10:06)
[2023-12-02] MEDS: Cholecalciferol (VIT D3) 25 MCG TABLET (1,000 UNITS) PO (10:06)
[2023-12-02] MEDS: Magnesium Chloride 64 MG Delay Rel.Tablet PO (10:06)
[2023-12-02] MEDS: Senna/Docusate Sodium 1 Tablet 2 TABLET PO ×2 (10:06→22:09)
[2023-12-02 13:00] VITALS: BP 114/62; PULSE 79; RESP 16; TEMP 36.5; O2SAT 97
[2023-12-02 20:30] VITALS: PULSE 70; O2SAT 94
[2023-12-03] MEDS: Acetaminophen 500 MG Tablet 1000 MG PO ×3 (05:51→21:07)
[2023-12-03] MEDS: Enoxaparin 40 MG/0.4 ML Syringe SC (05:52)
[2023-12-03 06:00] VITALS: PULSE 73; O2SAT 97
[2023-12-03] MEDS: Menthol/Lanolin/Calamine/Znox 113 GM Tube 1 APPLIC TOPICAL ×2 (11:32→21:05)
[2023-12-03] MEDS: Senna/Docusate Sodium 1 Tablet 2 TABLET PO ×2 (11:33→21:06)
[2023-12-03] MEDS: Cyanocobalamin 500 MCG Tablet 250 MCG PO (11:33)
[2023-12-03] MEDS: Magnesium Chloride 64 MG Delay Rel.Tablet PO (11:33)
[2023-12-03] MEDS: Lisinopril 20 MG Tablet PO (11:35)
[2023-12-03] MEDS: Cholecalciferol (VIT D3) 25 MCG TABLET (1,000 UNITS) PO (11:35)
[2023-12-03 11:40] VITALS: BP 118/67; PULSE 64
[2023-12-03 16:00] VITALS: BP 109/62; PULSE 71; RESP 20; TEMP 36.7; O2SAT 96
[2023-12-04] MEDS: Acetaminophen 500 MG Tablet 1000 MG PO ×3 (06:12→21:13)
[2023-12-04] MEDS: Enoxaparin 40 MG/0.4 ML Syringe SC (06:12)
[2023-12-04] MEDS: Senna/Docusate Sodium 1 Tablet 2 TABLET PO ×2 (09:32→21:12)
[2023-12-04] MEDS: Magnesium Chloride 64 MG Delay Rel.Tablet PO (09:32)
[2023-12-04] MEDS: Menthol/Lanolin/Calamine/Znox 113 GM Tube 1 APPLIC TOPICAL ×2 (09:32→21:12)
[2023-12-04] MEDS: Cholecalciferol (VIT D3) 25 MCG TABLET (1,000 UNITS) PO (09:33)
[2023-12-04] MEDS: Cyanocobalamin 500 MCG Tablet 250 MCG PO (09:33)
[2023-12-04] MEDS: Lisinopril 20 MG Tablet PO (09:33)
[2023-12-04 09:36] VITALS: BP 138/63; PULSE 75
[2023-12-04 13:15] VITALS: PULSE 70; RESP 18; O2SAT 97
[2023-12-04 14:14] VITALS: BP 104/65; PULSE 76; RESP 18; TEMP 36.5; O2SAT 97
[2023-12-05] MEDS: Acetaminophen 500 MG Tablet 1000 MG PO ×3 (05:20→21:16)
[2023-12-05] MEDS: Enoxaparin 40 MG/0.4 ML Syringe SC (05:21)
[2023-12-05 05:29] VITALS: PULSE 62; RESP 16; O2SAT 97
[2023-12-05] MEDS: Cyanocobalamin 500 MCG Tablet 250 MCG PO (08:58)
[2023-12-05] MEDS: Lisinopril 20 MG Tablet PO (08:58)
[2023-12-05] MEDS: Senna/Docusate Sodium 1 Tablet 2 TABLET PO ×2 (08:59→21:16)
[2023-12-05] MEDS: Magnesium Chloride 64 MG Delay Rel.Tablet PO (08:59)
[2023-12-05] MEDS: Cholecalciferol (VIT D3) 25 MCG TABLET (1,000 UNITS) PO (08:59)
[2023-12-05] MEDS: Menthol/Lanolin/Calamine/Znox 113 GM Tube 1 APPLIC TOPICAL ×2 (08:59→21:16)
--- NOTE | 2023-12-05 11:53 | CASEMGMT ---
Social Work SW met with patient and and let them know patient is ready for DC this week. This worker presented Notice of Medicare Non Coverage Letter with [employer] 12/07/23 and educated to Appeal rights. Pt and would like pt to be DC home on 12/07/23 rather than 12/08/23. requested [facility] for PT/OT. Therapy also recommending wheeled walker and requested [facility] as provider. SW will make referrals for HHC and DME. Deana FAGAN
[2023-12-05 14:03] VITALS: BP 114/68; PULSE 74; RESP 18; TEMP 36.2; O2SAT 99
--- NOTE | 2023-12-05 16:22 | CASEMGMT ---
Social Work SW made referral to [facility] for home PT/OT. Deana FAGAN
--- NOTE | 2023-12-05 16:56 | DS.PCM_ITS ---
Providers Date of Admission: 11/15/23 Primary Care Physician: Dr. Penny Dyer MD Reason For Visit: FALL Diagnosis Discharge Diagnosis (1) Debility: Status: Acute Code(s): R53.81 - Other malaise (2) Fall: Status: Inactive Code(s): W19.XXXA - Unspecified fall, initial encounter (3) Multiple fractures of ribs of right side: Status: Acute Code(s): S22.41XA - Multiple fractures of ribs, right side, initial encounter for closed fracture (4) Closed fracture of right scapula: Status: Acute Code(s): S42.101A - Fracture of unspecified part of scapula, right shoulder, initial encounter for closed fracture (5) Hypertension: Status: Chronic Code(s): I10 - Essential (primary) hypertension (6) Tremor: Status: Acute Code(s): R25.1 - Tremor, unspecified Plan 78 year old male with below past medical history hospitalized for fall, right rib fractures x 3, right scapula fracture, admitted to TCU with debility, here for rehabilitation, strengthening, prior to discharge home with . * Debility - PT/OT. * Pain - Tylenol 1000mg q8, Tramadol 50mg q6 prn pain (1-5), Oxycodone 5mg q4 prn pain (6-10). * Bowel - senna/colace 2 tablets bid, Magnesium citrate 300ml po x 1 dose, then daily prn. * Adult immunization - Administer pneumonia vaccine, covid vaccine, flu vaccine as appropriate. * DVT prophylaxis - Lovenox 40mg sc daily. * Vitamin D deficiency - D3 25mcg daily. * Vitamin B12 deficiency - B12 250mcg daily. * Nutrition - Ensure Plus 120ml tidcm. * Hypertension - Lisinopril 20mg daily. * Hypomagnesemia - Magnesium chloride 64mg daily. Medications at Discharge Home Medications lisinopril 20 mg tablet 1 tab PO DAILY BLOOD PRESSURE 02/28/20 cyanocobalamin (vitamin B-12) 250 mcg tablet (Vitamin B-12) 250 mcg PO DAILY supplement 11/12/23 magnesium 200 mg tablet 200 mg PO DAILY supplement 11/12/23 acetaminophen 500 mg tablet 1,000 mg (2 x 500 mg) PO Q8 #0 tabs 12/05/23 Hospital Course Operations None Procedures None Summary of Care Provided Minutes Spent on Discharge: 35 Hospital Course: 78 year old male with below past medical history hospitalized for fall, right rib fractures x 3, right scapula fracture, admitted to TCU with debility, here for rehabilitation, strengthening, prior to discharge home with . Discharge home with 12/07/2023, [facility] PT/OT, FWW. FWW: Patient is unsafe to use a cane and requires a walker for ambulation in the home and the community. Physical Exam Const alert General Appearance: cooperative HEENT normocephalic Eyes PERRL and EOMs intact bilaterally Neck supple, no JVD and no carotid bruits Resp normal respiratory effort, normal air movement and clear to auscultation bilaterally Cardio regular rate and regular rhythm GI normal to inspection, nondistended, normoactive bowel sounds, non-tender and non-distended Extremity normal capillary refill General Extremity: Negative for edema Skin no rashes or lesions noted General Skin Exam: no breakdown Psych affect normal Appearance: appropriate Weight / BMI Weight Weight: 78.88 kg Body Mass Index (BMI) 24.3 ABG / Lab / Microbiology Data 11/30/23 05:09 11/30/23 05:09 D/C Instructions Discharge Diet: No restrictions Discharge Activity: Return to Normal Activity, May Shower and Use Walker Weight Bearing Status: Weight bearing as tolerated Call your doctor if you observe: Fever of 101 or Higher, Inability to urinate, Inability to have a bowel movement, Shortness of breath, Dizziness, Fainting spells, Swelling in the ankles, Chest pain and Uncontrolled pain Additional Instructions: Discharge home with 12/07/2023, [facility] PT/OT, FWW. FWW: Patient is unsafe to use a cane and requires a walker for ambulation in the home and the community. Meaningful Use Info Meaningful Use Diagnoses (Choose all that apply): None applicable Discharge Plan Admission Admit Date/Time: 11/15/23 14:05 Primary Reason for Your Visit: Debility. Attending Provider: Leonard Dow Chi Primary Care Provider: Penny Dyer Instructions Additional Instructions / Restrictions: Discharge home with 12/07/2023, [facility] PT/OT, FWW. FWW: Patient is unsafe to use a cane and requires a walker for ambulation in the home and the community. Discharge Orders/Prescriptions Prescriptions: New acetaminophen 500 mg Tablet 1,000 mg PO Q8 Qty: 0 0RF Continued lisinopril 20 mg tablet 1 tab PO DAILY Hold Instructions: Resume on 11/16/23. He is only to take is SBP>160 cyanocobalamin (vitamin B-12) [Vitamin B-12] 250 mcg tablet 250 mcg PO DAILY magnesium 200 mg tablet 200 mg PO DAILY Discontinued Neuriva Plus 0.85 mg-200 mcg-1.2 mcg Tablet,Chewable 1 tab PO DAILY Vitamin D tablet DAILY Patient Comments: PT UNSURE IF IT IS D-2 OR D-3 oxycodone 5 mg Tablet 5 mg PO Q4H PRN PRN (Reason: PAIN SCORE 4-10/10) 3 Days Qty: 10 0RF Referrals / Follow Up: Penny Dyer MD [Primary Care Provider] - ( will make pcp appt ) Disposition Disposition (needs filled in before D/C Order can be placed): Home Health Service
[2023-12-06] MEDS: Acetaminophen 500 MG Tablet 1000 MG PO ×3 (06:11→21:06)
[2023-12-06] MEDS: Enoxaparin 40 MG/0.4 ML Syringe SC (06:12)
[2023-12-06] MEDS: Magnesium Chloride 64 MG Delay Rel.Tablet PO (07:49)
[2023-12-06] MEDS: Menthol/Lanolin/Calamine/Znox 113 GM Tube 1 APPLIC TOPICAL ×2 (07:49→21:07)
[2023-12-06] MEDS: Senna/Docusate Sodium 1 Tablet 2 TABLET PO ×2 (07:49→21:06)
[2023-12-06] MEDS: Cholecalciferol (VIT D3) 25 MCG TABLET (1,000 UNITS) PO (07:50)
[2023-12-06] MEDS: Lisinopril 20 MG Tablet PO (07:50)
[2023-12-06] MEDS: Cyanocobalamin 500 MCG Tablet 250 MCG PO (07:50)
[2023-12-06 09:57] VITALS: BMI 24.4
[2023-12-06 13:16] VITALS: BP 114/63; PULSE 81; RESP 14; TEMP 36.3; O2SAT 98
--- NOTE | 2023-12-06 15:47 | CASEMGMT ---
Discharge Plan Pt will be discharged home with on 12/07/23. Referral to [facility] for PT/OT and services to begin on 12/08/23. Referral to [facility] for wheeled walker. GRACIA Rodriguez
[2023-12-06 17:02] VITALS: BP 123/64; PULSE 70; RESP 18; TEMP 36.9; O2SAT 98
[2023-12-07] MEDS: Acetaminophen 500 MG Tablet 1000 MG PO (05:24)
[2023-12-07] MEDS: Enoxaparin 40 MG/0.4 ML Syringe SC (05:24)
[2023-12-07 05:58] LABS: Absolute Lymphocyte Count 1.87 X10^3/uL (0.83-4.51); Basophil# 0.05 X10^3/uL; Basophil% 0.7 % (0-1); Eosinophil# 0.31 X10^3/uL; Eosinophils% 4.4 % (0-5); Hematocrit 36.1 % (40-54); Hemoglobin 11.4 g/dL (13.0-16.5); Lymphocyte # 1.87 X10^3/ul (0.83-4.51); Lymphocyte % 26.5 % (19-41); Mean Corp Hgb Conc 31.6 g/dL (32-36); Mean Corpuscular Hgb 30.1 pg (27.0-32.0); Mean Corpuscular Volume 95.3 fL (80-94); Mean Platelet Vol. 10.7 fl (6.2-12.0); Monocyte# 0.76 X10^3/uL; Monocyte% 10.8 % (0-10); NRBC Flagged by Analyzer 0 % (0-5); Neutrophil # 4.03 X10^3/uL (2.7-7.7); Neutrophil % 57.2 % (47-70); Platelet Count 196 K/mm3 (150-450); RBC Distribution Width CV 13.4 % (11.6-14.6); RBC Distribution Width SD 47.1 fl (35.1-43.9); Red Blood Count 3.79 M/mm3 (4.6-6.2); White Blood Count 7.1 K/mm3 (4.4-11.0)
[2023-12-07 06:24] LABS: Anion Gap 1 (5-15); BUN 29 mg/dL (7-18); BUN/Creat Ratio 29.6 RATIO (10-20); Calcium,Total 8.5 mg/dL (8.5-10.1); Chloride 109 mmol/L (98-107); Creatinine, Serum 0.98 mg/dL (0.70-1.30); EST Glomerular Filtration Rate 78 mL/min (>60); Est Glom Filt Rate - Afr Amer 95 mL/min (>60); Estimated Creatinine Clearance 62.07 ml/min; Glucose 82 mg/dL (74-106); Potassium 4.7 mmol/L (3.5-5.1); Sodium Level 142 mmol/L (136-145)
--- NOTE | 2023-12-07 09:28 | CASEMGMT ---
Social Work SW met with pt and completed DC MDS interviews. BIMS PHQ9 02/15 Pt stated his answers and feelings are because of placement. He stated he was not feeling this way at home. He stated he is excited about returning home and thinks this will help his mood improve. SW provided support. ANA delivered wheeled walker to room and let pt know HHC will begin tomorrow. Deana FAGAN
[2023-12-07] MEDS: Magnesium Chloride 64 MG Delay Rel.Tablet PO (10:03)
[2023-12-07] MEDS: Menthol/Lanolin/Calamine/Znox 113 GM Tube 1 APPLIC TOPICAL (10:03)
[2023-12-07] MEDS: Senna/Docusate Sodium 1 Tablet 2 TABLET PO (10:03)
[2023-12-07] MEDS: Cyanocobalamin 500 MCG Tablet 250 MCG PO (10:06)
[2023-12-07] MEDS: Lisinopril 20 MG Tablet PO (10:06)
[2023-12-07] MEDS: Cholecalciferol (VIT D3) 25 MCG TABLET (1,000 UNITS) PO (10:06)
[2023-12-07 10:09] VITALS: BP 123/64; PULSE 70; RESP 18; TEMP 36.9; O2SAT 98
--- NOTE | 2023-12-07 11:13 | NURSING ---
WAITING FOR PT TO CALL FROM BATHROOM, THIS NURSE PEAKED THREW DOOR AND FOUND PT STANDING ON OWN AND STARTED WALKING BACKWARDS OFF BALANCE. RAN IN AND CAUGHT PT BEFORE HE FELL. EDUCATED PT ON ASKING FOR HELP AND USING WALKING DEVICES. PT STATED HE UNDER STOOD. PT WAS THERE AT TIME.
== END 2023-12-07 11:10 | disposition home health service (06) | DRG 561 ==
PROVIDERS: Admitting Provider Family Medicine Geriatric Medicine; PCP Internal Medicine; Referring Provider Family Medicine Geriatric Medicine; Visit Provider Family Medicine Geriatric Medicine
DX: S22.41XD Multiple fractures of ribs, right side, subsequent encounter for fracture with routine healing (principal); E53.8 Deficiency of other specified B group vitamins; I10 Essential (primary) hypertension; R25.1 Tremor, unspecified; E55.9 Vitamin D deficiency, unspecified; W19.XXXD Unspecified fall, subsequent encounter; E83.42 Hypomagnesemia; S42.101D Fracture of unspecified part of scapula, right shoulder, subsequent encounter for fracture with routine healing; Z79.899 Other long term (current) drug therapy
CPT/HCPCS: 36415; 80048; 82306; 82607; 85014; 85018; 85025; 92507; 92523; 97110; 97112; 97116; 97129; 97130; 97162; 97166; 97530; 97535; 97802; A4216

== ENCOUNTER 2023-12-09 15:40 | Outpatient (RCR) | payer OTHER, SELFPAY ==
[2023-12-09 16:13] LABS: Color, Urine Yellow (Yellow); Glucose, Dipstick Normal (Normal); Ketone-Dipstick Negative (Negative); Leukocyte Esterase-Dipstick Negative /ul (Negative); Nitrite-Dipstick Negative (Negative); Occult Blood-Urine Negative /ul (Negative); Protein-Dipstick Negative (Negative); Specific Gravity, Urine 1.015 (1.002-1.030); Urine Bilirubin Dipstick Negative (Negative); Urine Clarity Clear (Clear); Urine Urobilinogen Normal (Normal); Urine pH 6.5 (5.0 - 8.0)
== END 2023-12-20 22:21 | disposition home or self-care (01) ==
LOC: HHLAB 15:40
PROVIDERS: PCP Internal Medicine
DX: S42.101A Fracture of unspecified part of scapula, right shoulder, initial encounter for closed fracture (principal)
CPT/HCPCS: 81002; 87086

== ENCOUNTER 2024-02-10 10:30 | Outpatient (RCR) | payer OTHER, SELFPAY ==
--- NOTE | 2024-01-13 11:13 | HP.PTEVAL_ITS ---
Patient's Visit Information Visit Information Visit Information: BJORN ARTEAGA is a 78 year old M referred to Physical Therapy by Dr. Penny Dyer MD with a diagnosis of Closed fx scapula/multiple rib fx. Date of Evaluation: 01/13/24 Physical Therapist: ALOK Downs Visit Plan Frequency: 2x /Week Duration: 2 Months Plan: 2X/ week for 6 weeks for R shoulder PROM/AAROM/AROM, scapular strength, RC strength, postural exercises with HEP HEP: supine wand flexion, standing wand flexion, standing IR, scapular squeezes Spoke to after the eval and she said the pt was supposed to be here for balance as well. She will call and get the order and when Angle PT sees him next she will assess him for balance and set goals accordingly Subjective Subjective: Pt fell and he got up too quick and he hurt his shoulder and broke some ribs. This was in November sometime. He has some pain still in the shoulder. He has some movement with some pain. He reports that he is not having trouble with his balance and this was because he stood up too fast. He is R handed. He is sleeping ok. He is still sleeping on the couch because of this. He is hoping to get back to sleeping in a bed...he is getting a new bed. He has not used his shoulder much due to it being painful. 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[employer] Wireman strength B 40# Shoulder AROM: R shoulder flex 110 and L 136 R shoulder ABD 128 and L 145 R shoulder IR T12 and L T10 R shoulder ER 20 and L 35 Shoulder MMT R shoulder flex 7 and L 8.5 R shoulder ABD 10.1 and L 9.1 R shoulder ER 7.1 and L 6.7 R IR 8.1 and L 7.5 Posture: sits with rounded shoulders and FW head Balance/Special Test Scores Quick DASH Score: 18.1800 Goals Goal 1:: I HEP Goal Time Frame: 6-8 Weeks Goal 2:: Increase R shoulder AROM (at the time of the eval: R shoulder flex 110 and L 136 R shoulder ABD 128 and L 145 R shoulder IR T12 and L T10 R shoulder ER 20 and L 35) Goal Time Frame: 6-8 Weeks Goal 3:: Increase R shoulder MMT (at the time of the eval: R shoulder flex 7 and L 8.5 R shoulder ABD 10.1 and L 9.1 R shoulder ER 7.1 and L 6.7 R IR 8.1 and L 7.5 Goal Time Frame: 4-6 Weeks Goal 4:: Be able to use his R arm for ADL's with no pain Goal Time Frame: 4-6 Weeks Rehabilitation Potential Rehabilitation Potential: Good Anticipated Interventions Patient/Client Instruction: Educate patient on: Condition and Plan of Care For the Purpose of:: To increase ROM, To improve nutrient delivery to tissue, To improve muscle performance and motor function, To improve ability to perform ADL's, To increase tolerance to activity/condition/position, To decrease soft tissue restriction and To increase flexibility/ROM Therapeutic Exercise to Include: Strength training, Postural training, Flexibilty training, Passive ROM, Active ROM and Scapular Strength/Stabilization For the Purpose of:: To increase ROM, To improve nutrient delivery to tissue, To improve muscle performance and motor function, To increase tolerance to activity/condition/position, To decrease level of supervision to perform tasks, To improve health of tissue, To decrease soft tissue restriction and To increase flexibility/ROM Manual Therapy Techniques to Include: Passive ROM For the Purpose of:: To increase ROM and To improve nutrient delivery to tissue Text: Thank you for the opportunity to evaluate your patient. For Medicare and Medicare HMO plans, please review the plan of care and approve it. It will need to be FAXED BACK to us at [phone] for Medicare purposes. For Medicare only, by signing this I certify the plan of care. Please let me know if there are questions or concerns regarding this plan of care. Physician Signature: Date:
--- NOTE | 2024-02-10 15:09 | HP.PTDCSUM ---
Discharge Summary D/C summary: It has been my pleasure to treat BJORN ARTEAGA referred by Dr. Penny Dyer MD, with the diagnosis of R Closed fx scapula/multiple rib fx for a total of 9 visit(s). Discharge Date: 02/10/24 Please see the following information for a summary of their discharge status. Subjective Subjective: Results copied from 02/06 re-eval Pain R shoulder pain: Pain Intensity (Out of 10): 8 Rib pain: Pain Intensity (Out of 10): 0 Overall Improvement % Improvement: 80 Objective Objective/Function: copied from 02/06...Goals met with B shoulder AROM equal B, and has full return to use of his R Arm with ADL's FGA 19 Spoke with and gave hand out for increase stride with gait and vertical head turns in the corner Goals Goal 1:: I HEP Goal Progress: Goal Met Goal 2:: Increase R shoulder AROM (at the time of the eval: R shoulder flex 110 and L 136 R shoulder ABD 128 and L 145 R shoulder IR T12 and L T10 R shoulder ER 20 and L 35) Goal Progress: Goal Met Goal 3:: Increase R shoulder MMT (at the time of the eval: R shoulder flex 7 and L 8.5 R shoulder ABD 10.1 and L 9.1 R shoulder ER 7.1 and L 6.7 R IR 8.1 and L 7.5 Goal 4:: Be able to use his R arm for ADL's with no pain Goal Progress: Goal Met Goal 5:: Increase balance by increasing FGA score (score was 19 when orgi tested) Goal 6:: Be able to walk with longer stride length and more upright posture Goal Progress: Progressing Plan Plan: DC PT D/C Information Discharge Comments: DC PT d/c sentence: If there are questions or concerns regarding this patient's physical therapy, please feel free to call me at [phone]. Thank you for the referral of this patient. Sincerely, Angle Coker, MPT Balance/Gait/Functional tests Balance/Special Test Scores Functional Gait Assessment Score: 19 % Disability: 36.6700 Quick DASH Score: 2.2725 Improvement % Improvement: 80
== END 2024-02-10 19:00 | disposition home or self-care (01) ==
LOC: PT 10:30
PROVIDERS: PCP Internal Medicine; Referring Provider Internal Medicine; Visit Provider Internal Medicine
DX: S42.101D Fracture of unspecified part of scapula, right shoulder, subsequent encounter for fracture with routine healing (principal); S22.41XD Multiple fractures of ribs, right side, subsequent encounter for fracture with routine healing
CPT/HCPCS: 97110; 97112; 97161; 97530

== ENCOUNTER 2024-05-08 12:45 | Emergency (ER) | payer OTHER, SELFPAY ==
[2024-05-08] VITALS (8 sets, daily range): BP systolic 124–153; BP diastolic 62–90; PULSE 54–74; RESP 16–22; TEMP 36.6–36.7; O2SAT 92–99; BMI 25.7
--- NOTE | 2024-05-08 13:37 | RAD_ITS ---
STUDY: X-RAY CHEST REASON FOR EXAM: Male, 78 years old. Chest pain TECHNIQUE: Single AP portable view of the chest. COMPARISON: None. FINDINGS: EKG electrodes are seen. The lungs are clear and expanded. There is no demonstrated pleural abnormality. Normal size heart. Normal mediastinum and [place]. Normal visualized pulmonary arteries. Normal visualized aortic arch and descending thoracic aorta. There are diffuse degenerative changes of the visualized thoracic spine. Healed right rib fractures. Right AC joint separation. There is no demonstrated abnormality of the visualized soft tissue structures of the upper abdomen. RAD/Chest 1 View (Portable) IMPRESSION: Lungs are clear. Electronically Signed: Dimitrios Pritchett MD at 14:50 EDT ,
--- NOTE | 2024-05-08 14:14 | EDS_ITS ---
HPI History of Present Illness Chief Complaint: Chest Pain Narrative Narrative: Chief complaint and HPI: Chest pain. 78-year-old male with past medical history of HTN and venous insufficiency presents for evaluation of chest pain. Patient states prior to arrival he had about a 5-minute episode of left-sided chest pain. Did not radiate to the back, at the jaw, down the arm. Describes as sharp. Currently denying chest pain. states he looked a little pale when this episode happened. EMS was called. No aspirin given. Patient denies any fever, chills, shortness of breath, abdominal pain, nausea, vomiting, dysuria. Denies a history of DVT/PE, blood clotting disorder, recent trauma or surgery, known malignancy, travel. States he has had some mild bilateral lower extremity swelling which she takes Lasix for. Review of systems: See HPI Medications: As listed on the chart Allergies: As listed on the chart PFSH: Per chart Vital signs: As listed on the chart. Reviewed. Physical exam: Gen: A&O x3, NAD Head: Normocephalic, atraumatic Eyes: No sclera icterus, conjunctiva clear ENT: Moist mucous membranes Neck: Trachea midline, No JVD CV: RRR, no murmurs, + 1 pitting peripheral edema bilaterally Resp: Lungs CTA BL, no w/r/c GI: Abd soft, non-distended, non-tender, no r/r/g Musc: Full ROM, no deformity Skin: Warm, dry Neuro: Alert, oriented, grossly intact, sensation intact Psych: Cooperative, appropriate mood and affect [facility] Medical History (Updated 12/15/23 @ 00:01 by Farooq Au) BCC (basal cell carcinoma of skin) Skin lesion Hypertension Arthritis Change in [facility] [place] Home Medications ?Medication ?Instructions ?Recorded ?Last Taken ?Type lisinopril 20 mg tablet 1 tab PO DAILY BLOOD PRESSURE 02/28/20 Unknown History cyanocobalamin (vitamin B-12) 250 250 mcg PO DAILY supplement 11/12/23 11/11/23 History mcg tablet (Vitamin B-12) magnesium 200 mg tablet 200 mg PO DAILY supplement 11/12/23 11/11/23 History acetaminophen 500 mg tablet 1,000 mg (2 x 500 mg) PO Q8 #0 tabs 12/05/23 Unknown Rx Allergy/AdvReac Type Severity Reaction Status Date / Time No Known Allergies Allergy Verified 05/08/24 12:50 Family History Brother Cancer Father Heart disease Surgical History Status post hip replacement Social History (Updated 11/15/23 @ 19:[address] Leonard Dow MD) household members: spouse Smoking Status: Never smoker alcohol intake: never substance use type: does not use EXAM Physical Exam Const Vital Signs: 05/08/24 12:48 05/08/24 12:50 05/08/24 13:37 Temperature 98.0 F Temperature Source Temporal Pulse Rate 63 Respiratory Rate 16 Respiratory Effort Normal Blood Pressure 137/90 H Blood Pressure Mean 105 Pulse Ox 92 99 Oxygen Delivery Method Room Air Room Air 05/08/24 13:48 05/08/24 14:00 05/08/24 15:00 Temperature Temperature Source Pulse Rate 56 L 55 L 58 L Respiratory Rate 18 18 20 H Respiratory Effort Blood Pressure 124/62 H 131/73 H 128/89 H Blood Pressure Mean 82 92 102 Pulse Ox 99 99 Oxygen Delivery Method Room Air Room Air 05/08/24 16:00 Temperature Temperature Source Pulse Rate 54 L Respiratory Rate 16 Respiratory Effort Blood Pressure 135/79 H Blood Pressure Mean 97 Pulse Ox Oxygen Delivery Method MDM MDM MDM Narrative Medical decision making narrative: 78-year-old male presents for evaluation of chest pain. Chest pain lasts about 5 minutes and currently has resolved. Currently asymptomatic. Differential diagnosis includes but is not limited to musculoskeletal strain, CAD, electrolyte abnormality, arrhythmia, PE Aspirin given. Cardiac workup ordered. CBC without leukocytosis. Patient has stable anemia of 12.1. Thrombocytopenia of 118 from previous laboratory workup patient has had this in the past. Denies any recent bleeding. BMP relatively unremarkable. BNP mildly elevated at 145. Patient does have +1 pitting edema. He takes Lasix at home. Chest x-ray without effusions. Troponin unremarkable. Delta pending. D-dimer elevated at 1.45. This is higher than age-adjusted therefore CTA chest ordered to assess for PE. CTA chest and delta troponin pending at this time. Patient's heart score is a 3 given his age and risk factors. He has been asymptomatic his entire emergency stay. On chart review he had a previous echo in 2022 which showed a normal EF. And a stress test in 2017 that was unremarkable. If delta troponin is unremarkable plan will be for discharge home and follow-up outpatient. Patient is to take his Lasix for his edema. If CTA is positive for PE he will need to be treated at that time. Patient and family updated on all the results and the plan. They confirmed understanding. Patient signed out to Dr. Nash who will wait to delta troponin and CTA results. EKG: Interpreted by me/EM physician: EKG shows sinus bradycardia with a heart rate of 59. He does have PVCs. No ST elevation. Patient has history of bradycardia in the past on his vitals. Diagnostic: Interpreted by me/EM physician: Chest x-ray without pneumonia, effusions, pneumothorax. Impression: 1. Chest pain, resolved 2. Elevated D-dimer 3. Peripheral edema Lab Data Labs: Laboratory Results - last 24 hr 05/08/24 14:12 WBC 6.5 RBC 4.05 L Hgb 12.1 L Hct 38.4 L MCV 94.8 H MCH 29.9 MCHC 31.5 L RDW Std Deviation 46.8 H RDW Coeff of [place] 13.3 Plt Count 118 L MPV 11.6 Immature Gran % (Auto) 0.300 Neut % (Auto) 73.6 H Lymph % (Auto) 15.8 L [place] % (Auto) 8.0 Eos % (Auto) 1.7 Baso % (Auto) 0.6 Absolute Neuts (auto) 4.8 Absolute Lymphs (auto) 1.03 Nucleated RBC % 0 D-Dimer Quant (PE/DVT) 1.45 H* Sodium 144 Potassium 4.2 Chloride 112 H Carbon Dioxide 30.0 Anion Gap 2 L BUN 27 H Creatinine 1.00 Estim Creat Clear Calc 60.83 Est GFR (MDRD) Af Amer 92 Est GFR (MDRD) Non-Af 76 BUN/Creatinine Ratio 27.0 H Glucose 88 Calcium 8.9 Troponin I High Sens 10 B-Natriuretic Peptide 145.5 H Radiography Diagnostic Testing: Clinical Impression(s) from Imaging Studies Chest X-Ray 05/08/24 13:37 IMPRESSION: Lungs are clear. Electronically Signed: Dimitrios Pritchett MD at 14:50 EDT , Discharge Plan Triage Chief Complaint: Chest Pain ED Provider: Jabari Carrera Dx/Rx/DC Orders Prescriptions: No Action lisinopril 20 mg tablet 1 tab PO DAILY acetaminophen 500 mg Tablet 1,000 mg PO Q8 Qty: 0 0RF cyanocobalamin (vitamin B-12) [Vitamin B-12] 250 mcg tablet 250 mcg PO DAILY magnesium 200 mg tablet 200 mg PO DAILY Primary Care Provider: Penny Dyer Referrals: Penny Dyer MD [Primary Care Provider] - Print Language: American
[2024-05-08] MEDS: Aspirin 81 MG TAB.CHEW 324 MG PO (14:16)
[2024-05-08 14:24] LABS: Absolute Lymphocyte Count 1.03 X10^3/uL (0.83-4.51); Absolute Neutrophil Count 4.8 X10^3/uL (2.0-7.7); Basophil# 0.04 X10^3/uL; Basophil% 0.6 % (0-1); Eosinophil# 0.11 X10^3/uL; Eosinophils% 1.7 % (0-5); Hematocrit 38.4 % (40-54); Hemoglobin 12.1 g/dL (13.0-16.5); Lymphocyte # 1.03 X10^3/ul (0.83-4.51); Lymphocyte % 15.8 % (19-41); Mean Corp Hgb Conc 31.5 g/dL (32-36); Mean Corpuscular Hgb 29.9 pg (27.0-32.0); Mean Corpuscular Volume 94.8 fL (80-94); Mean Platelet Vol. 11.6 fl (6.2-12.0); Monocyte# 0.52 X10^3/uL; NRBC Flagged by Analyzer 0 % (0-5); Neutrophil % 73.6 % (47-70); Platelet Count 118 K/mm3 (150-450); RBC Distribution Width CV 13.3 % (11.6-14.6); RBC Distribution Width SD 46.8 fl (35.1-43.9); Red Blood Count 4.05 M/mm3 (4.6-6.2); White Blood Count 6.5 K/mm3 (4.4-11.0)
[2024-05-08 14:36] LABS: Anion Gap 2 (5-15); BUN 27 mg/dL (7-18); Calcium,Total 8.9 mg/dL (8.5-10.1); Chloride 112 mmol/L (98-107); EST Glomerular Filtration Rate 76 mL/min (>60); Est Glom Filt Rate - Afr Amer 92 mL/min (>60); Estimated Creatinine Clearance 60.83 ml/min; Glucose 88 mg/dL (74-106); Potassium 4.2 mmol/L (3.5-5.1); Sodium Level 144 mmol/L (136-145); Troponin-I HS (w/2H Reflex) 10 pg/mL (3.0-78.0)
[2024-05-08 14:44] LABS: BNP,B-Type NATRIURETIC PEPTIDE 145.5 pg/mL (0-100)
[2024-05-08 14:52] LABS: D-Dimer Quantitative (DVT/PE) 1.45 FEU/ug/m (0.27-0.49)
--- NOTE | 2024-05-08 15:01 | CT_ITS ---
STUDY: CTA CHEST REASON FOR EXAM: Male, 78 years old. Elevated dimer RADIATION DOSAGE (If Supplied By Facility): CTDIvol = ( 13.23 ) mGy, DLP = ( 441.03 ) mGycm TECHNIQUE: The examination was performed with the intravenous administration of IV 100mL [id number]-370. Post-processing of the angiographic images was performed, with multiplanar reformation and 3D reconstruction. Individualized dose optimization techniques were used for this CT. COMPARISON: November 11, 2023 FINDINGS: Normal enhancement of the main pulmonary artery and right and left pulmonary arteries. Normal enhancement of the bilateral peripheral pulmonary arteries. There is no demonstrated pulmonary embolism. [Atherosclerotic change of the aorta without evidence for aneurysm. There is no demonstrated aortic dissection. Heart is enlarged. There is mild coronary artery calcification Normal mediastinum. Calcified right hilar nodes Normal visualized trachea and bronchi. The lungs are well expanded. Mild probably chronic bibasilar interstitial thickening and subsegmental atelectasis in the right lower lobe Calcified granuloma in the right upper lobe Normal pleura. Normal chest wall structures. Dorsal spine demonstrates degenerative change. Multiple old healed right rib and scapula fractures Multiple granulomatous calcifications within normal size spleen CT/CTA Chest W/WO Contrast IMPRESSION: Mild chronic bibasilar interstitial thickening and old granulomatous disease No evidence for pulmonary embolus. Electronically Signed: Devon Rivas MD at 16:53 EDT ,
[2024-05-08] MEDS: 0.9% Normal Saline (1000mL) 1,000 ML 999 ML IV (15:19)
[2024-05-08 16:14] LABS: Reflex Troponin-HS? (from REC) Y
[2024-05-08 16:46] LABS: Troponin-I HS 10 pg/mL (3.0-78.0)
== END 2024-05-08 17:22 | disposition home or self-care (01) ==
PROVIDERS: Emergency Provider Surgery; PCP Internal Medicine; Visit Provider Surgery
DX: R07.9 Chest pain, unspecified (principal); I10 Essential (primary) hypertension; R60.9 Edema, unspecified; Z79.899 Other long term (current) drug therapy; Z96.649 Presence of unspecified artificial hip joint; R79.1 Abnormal coagulation profile
CPT/HCPCS: 71045; 71275; 80048; 83880; 84484; 85025; 85379; 93005; 96360; 96361; 99284; J7030; Q9967; A4216